=== PATIENT | female | born 1960 | race Caucasian/White ===

== ENCOUNTER → 2020-11-25 | Outpatient (CLI) | payer MEDICARE | END | disposition home or self-care (01) | LOC: LABWHC1 07:50 | PROVIDERS: ATTEND Family Medicine | DX: Z20.822 Contact with and (suspected) exposure to COVID-19 (principal); R06.00 Dyspnea, unspecified | CPT/HCPCS: U0003; C9803; U0005 ==

== ENCOUNTER 2020-12-01 12:09 | Inpatient (IN) | payer MEDICARE ==
--- NOTE | 2020-12-01 12:58 | XR ---
EXAMINATION TYPE: XR chest 2V DATE OF EXAM: 12/01/2020 COMPARISON: None INDICATION: Cough, short of breath TECHNIQUE: Frontal and lateral views of the chest are obtained. FINDINGS: The heart size is normal. The pulmonary vasculature is normal. Small bilateral pleural effusions are present. Some minimal adjacent compressive atelectasis likely p resent. Due to left mastectomy. Multiple surgical clips are in the left axillary region. Osseous stru ctures as visualized appear normal.. IMPRESSION: 1. Small bilateral pleural effusions with adjacent atelectasis
[2020-12-01] MEDS ORDERED: SODIUM CHLORIDE 0.9% 1,000 ML IV STA (13:43)
[2020-12-01] MEDS ORDERED: methylPREDNISolone SOD SUCCI 125 MG/2 ML VIAL IV STA (13:43)
[2020-12-01] MEDS ORDERED: IPRATROPIUM-ALBUTEROL 3 ML NEB INHALATION STA (13:43)
--- NOTE | 2020-12-01 13:46 | ED ---
SOB HPI - General Chief Complaint: Shortness of Breath Stated Complaint: PIPER/Abd Pain Time Seen by Provider: 12/01/20 13:30 Source: patient, RN notes reviewed Mode of arrival: wheelchair Limitations: no limitations - History of Present Illness Initial Comments: This is a 60-year-old female with a history of lung cancer in the past with a history of asthma who is a 1 pack-a-day smoker who states she started developing some shortness of breath couple weeks ago and progressively worse now she has shortness of breath exertional dyspnea no palpitations she has a cough sometimes with yellow phlegm she denies any fevers chills or sweats. She denies any chest pain. She states her home medications are not working. Lung cancer was from 2003 MD Complaint: shortness of breath, cough - Related Data Home Medications Medication Instructions Recorded Confirmed Fluticasone Propionate [Flovent 2 puff INHALATION RT-BID 12/01/20 12/01/20 Diskus] Allergies Allergy/AdvReac Type Severity Reaction Status Date / Time morphine Allergy Rash/Hives Verified 12/01/20 13:44 Review of Systems ROS Statement: Those systems with pertinent positive or pertinent negative responses have been documented in the HPI. ROS Other: All systems not noted in ROS Statement are negative. Past Medical History Past Medical History: Cancer Additional Past Medical History / Comment(s): Breast CA 2003 History of Any Multi-Drug Resistant Organisms: None Reported Past Surgical History: No Surgical Hx Reported Smoking Status: Never smoker Past Alcohol Use History: None Reported Past Drug Use History: Marijuana General Exam - General Exam Comments Initial Comments: Pezzer well-developed asthenic appearing female who is awake alert oriented 3 Limitations: no limitations General appearance: alert, anxious, in distress Head exam: Present: atraumatic, normocephalic, normal inspection Eye exam: Present: normal appearance, PERRL, EOMI. Absent: scleral icterus, conjunctival injection, periorbital swelling ENT exam: Present: mucous membranes dry Neck exam: Present: normal inspection. Absent: tenderness, meningismus, lymphadenopathy Respiratory exam: Present: decreased breath sounds. Absent: respiratory distress, wheezes, rales, rhonchi, stridor Cardiovascular Exam: Present: regular rate, normal rhythm, normal heart sounds. Absent: systolic murmur, diastolic murmur, rubs, gallop, clicks GI/Abdominal exam: Present: soft, normal bowel sounds. Absent: distended, tenderness, guarding, rebound, rigid Extremities exam: Present: normal inspection, full ROM, normal capillary refill. Absent: tenderness, pedal edema, joint swelling, calf tenderness Back exam: Present: normal inspection Neurological exam: Present: alert, oriented X3, CN II-XII intact Psychiatric exam: Present: normal affect, normal mood Skin exam: Present: warm, dry, intact, normal color. Absent: rash Course Vital Signs 12/01/20 12/01/20 12/01/20 12:19 13:24 15:00 Pulse Rate 101 H 96 Respiratory 20 22 20 Rate Blood Pressure 105/75 110/78 O2 Sat by Pulse 100 99 Oximetry - Reevaluation(s) Reevaluation #1: 12/01/20 17:07 Initial reevaluation patient reveals she felt somewhat improved at the breathing treatment was so short of breath Medical Decision Making - Medical Decision Making I did discuss the findings with the patient and with Dr. sims patient has bilateral pleural effusions evidence of asthma exacerbation patient will be admitted for inpatient evaluation and treatment she was offered a nicotine patch as she smokes one pack cigarettes per day she does not want a patch at this time. - Lab Data Result diagrams: 12/01/20 14:09 12/01/20 14:09 Lab Results 12/01/20 12/01/20 12/01/20 Range/Units 14:09 14:09 14:09 WBC 11.7 H (3.8-10.6) k/uL RBC 4.50 (3.80-5.40) m/uL Hgb 12.8 (11.4-16.0) gm/dL Hct 41.0 (34.0-46.0) % MCV 91.1 (80.0-100.0) fL MCH 28.4 (25.0-35.0) pg MCHC 31.1 (31.0-37.0) g/dL RDW 16.2 H (11.5-15.5) % Plt Count 280 (150-450) k/uL MPV 9.7 Neutrophils % 68 % Lymphocytes % 25 % Monocytes % 5 % Eosinophils % 1 % Basophils % 0 % Neutrophils # 8.0 H (1.3-7.7) k/uL Lymphocytes # 2.9 (1.0-4.8) k/uL Monocytes # 0.6 (0-1.0) k/uL Eosinophils # 0.1 (0-0.7) k/uL Basophils # 0.0 (0-0.2) k/uL Hypochromasia Slight Anisocytosis Slight PT 10.5 (9.0-12.0) sec INR 1.0 (<1.2) APTT 21.9 L (22.0-30.0) sec Sodium 140 (137-145) mmol/L Potassium 3.7 (3.5-5.1) mmol/L Chloride 104 (98-107) mmol/L Carbon Dioxide 27 (22-30) mmol/L Anion Gap 9 mmol/L BUN 13 (7-17) mg/dL Creatinine 0.61 (0.52-1.04) mg/dL Est GFR (CKD-EPI)AfAm >90 (>60 ml/min/1.73 sqM) Est GFR (CKD-EPI)NonAf >90 (>60 ml/min/1.73 sqM) Glucose 89 (74-99) mg/dL Plasma Lactic Acid Pascual (0.7-2.0) mmol/L Calcium 9.2 (8.4-10.2) mg/dL Magnesium 2.0 (1.6-2.3) mg/dL Total Bilirubin 0.7 (0.2-1.3) mg/dL AST 50 H (14-36) U/L ALT 37 H (4-34) U/L Alkaline Phosphatase 135 H (38-126) U/L Creatine Kinase 84 (30-135) U/L Troponin I (0.000-0.034) ng/mL Total Protein 6.5 (6.3-8.2) g/dL Albumin 3.7 (3.5-5.0) g/dL 12/01/20 12/01/20 Range/Units 14:09 14:09 WBC (3.8-10.6) k/uL RBC (3.80-5.40) m/uL Hgb (11.4-16.0) gm/dL Hct (34.0-46.0) % MCV (80.0-100.0) fL MCH (25.0-35.0) pg MCHC (31.0-37.0) g/dL RDW (11.5-15.5) % Plt Count (150-450) k/uL MPV Neutrophils % % Lymphocytes % % Monocytes % % Eosinophils % % Basophils % % Neutrophils # (1.3-7.7) k/uL Lymphocytes # (1.0-4.8) k/uL Monocytes # (0-1.0) k/uL Eosinophils # (0-0.7) k/uL Basophils # (0-0.2) k/uL Hypochromasia Anisocytosis PT (9.0-12.0) sec INR (<1.2) APTT (22.0-30.0) sec Sodium (137-145) mmol/L Potassium (3.5-5.1) mmol/L Chloride (98-107) mmol/L Carbon Dioxide (22-30) mmol/L Anion Gap mmol/L BUN (7-17) mg/dL Creatinine (0.52-1.04) mg/dL Est GFR (CKD-EPI)AfAm (>60 ml/min/1.73 sqM) Est GFR (CKD-EPI)NonAf (>60 ml/min/1.73 sqM) Glucose (74-99) mg/dL Plasma Lactic Acid Pascual 1.6 (0.7-2.0) mmol/L Calcium (8.4-10.2) mg/dL Magnesium (1.6-2.3) mg/dL Total Bilirubin (0.2-1.3) mg/dL AST (14-36) U/L ALT (4-34) U/L Alkaline Phosphatase (38-126) U/L Creatine Kinase (30-135) U/L Troponin I 0.040 H* (0.000-0.034) ng/mL Total Protein (6.3-8.2) g/dL Albumin (3.5-5.0) g/dL - EKG Data -: EKG Interpreted by Me EKG Comments: Sinus tachycardia rate 105. Interval 160 QRS 88 QT since QTC 372/491 low- voltage QRS or R-wave progression - Radiology Data Radiology results: report reviewed (Reviewed evidence of bilateral pleural effusions), image reviewed Disposition Clinical Impression: Asthma exacerbation, Bilateral pleural effusion Disposition: ADMITTED IP TO THIS [facility] Condition: Fair Referrals: Cornell Alexander DO [Primary Care Provider] - 1-2 days
[2020-12-01] MEDS ORDERED: ALBUTEROL HFA INHALER INHALATION STA (14:09)
[2020-12-01 14:32] LABS: Anisocytosis Slight; Basophils % (A) 0 %; Eosinophils # (A) 0.1 k/uL (0-0.7); Eosinophils % (A) 1 %; HGB 12.8 gm/dL (11.4-16.0); Hypochromasia Slight; Lymphocytes # (A) 2.9 k/uL (1.0-4.8); Lymphocytes % (A) 25 %; MCH 28.4 pg (25.0-35.0); MCHC 31.1 g/dL (31.0-37.0); MCV 91.1 fL (80.0-100.0); Mean Platelet Volume 9.7; Monocytes # (A) 0.6 k/uL (0-1.0); Monocytes % (A) 5 %; Neutrophils % (A) 68 %; Platelet Count 280 k/uL (150-450); RDW 16.2 % (11.5-15.5); WBC 11.7 k/uL (3.8-10.6)
[2020-12-01 14:40] LABS: Prothrombin Time 10.5 sec (9.0-12.0)
[2020-12-01 14:47] LABS: ALT 37 U/L (4-34); AST 50 U/L (14-36); African American GFR (CKD) >90 (>60 ml/min/1.73 sqM); Albumin 3.7 g/dL (3.5-5.0); Alkaline Phosphatase 135 U/L (38-126); Anion Gap 9 mmol/L; Blood Urea Nitrogen 13 mg/dL (7-17); Calcium 9.2 mg/dL (8.4-10.2); Carbon Dioxide 27 mmol/L (22-30); Chloride 104 mmol/L (98-107); Creatine Kinase 84 U/L (30-135); Glucose 89 mg/dL (74-99); Non-African American GFR(CKD) >90 (>60 ml/min/1.73 sqM); Potassium 3.7 mmol/L (3.5-5.1); Sodium 140 mmol/L (137-145); Total Bilirubin 0.7 mg/dL (0.2-1.3); Total Protein 6.5 g/dL (6.3-8.2)
[2020-12-01 14:59] LABS: Partial Thromboplastin Time 21.9 sec (22.0-30.0)
[2020-12-01] MEDS ORDERED: ASPIRIN 81 MG PO STA (17:09)
[2020-12-01] MEDS ORDERED: FUROSEMIDE 10 MG/ML 4 ML VIAL IV STA (17:09)
[2020-12-01] MEDS ORDERED: HEPARIN SODIUM 1,000 UN/ML (10ML VL) IV PRN (17:12)
[2020-12-01] MEDS ORDERED: HEPARIN SODIUM 1,000 UN/ML (10ML VL) IV ONE (17:12)
[2020-12-01] MEDS: SODIUM CHLORIDE 0.9% 1,000 ML IV SCH (17:44)
[2020-12-01] MEDS: HEPARIN SOD,PORK IN 0.45% NACL 25,000 UNIT in 0.45% NACL 1 250ML.BAG IV SCH (17:47)
[2020-12-01] MEDS ORDERED: IPRATROPIUM-ALBUTEROL 3 ML NEB INHALATION PRN (19:01)
[2020-12-01] MEDS: IPRATROPIUM-ALBUTEROL 3 ML NEB INHALATION SCH (19:17)
[2020-12-01] MEDS ORDERED: IPRATROPIUM-ALBUTEROL 3 ML NEB INHALATION SCH (20:00)
[2020-12-01] MEDS: FUROSEMIDE 10 MG/ML 2 ML VIAL IV SCH (21:29)
--- NOTE | 2020-12-01 23:06 | P.HPIM ---
History of Present Illness This is a pleasant 60 years old female with no significant past medical history. She follows up with Dr. Alexander recently. She recently moved from [place] to [place]. Patient is heavy smoker smokes about 1 pack per day but no alcohol. She uses pot at times. Presents because of dyspnea over the last 3 weeks, her dyspnea got worse over the last couple days and she decided to come to emergency room. Her dyspnea is not associated with any chest pain or cough or phlegm. However she complains from epigastric pain for the last 2 weeks but mild about 1/10 , feels like tightness No nausea vomiting or diarrhea. No dysuria or change in urinary habits or frequency. He denies headache, weakness or numbness or blurred vision or slurred speech. However her chest pain is associated with numbness in her left upper extremity and fingers for the last 3 weeks. She is a slightly tachycardic and tender to 2, blood pressure is low normal with systolic BP above 100. Labs reviewed: CBC showed mild leukocytosis with 11.7 K, mild increased LFTs. Troponin is high at 0.04. Line chest x-ray showing bilateral pleural effusion with atelectasis. In the emergency room patient was started on heparin drip and aspirin. Review of Systems Review of systems CONSTITUTIONAL: No fever, no malaise, no fatigue. HEENT: No recent visual problems or hearing problems. Denied any sore throat. CARDIOVASCULAR: No orthopnea, PND, no palpitations, no syncope. PULMONARY: No chest wall tenderness, no cough, no hemoptysis. GASTROINTESTINAL: No diarrhea, no nausea, no vomiting, no abdominal pain. Normoactive bowel sounds. NEUROLOGICAL: No headaches, no weakness, no numbness. HEMATOLOGICAL: Denies any bleeding or petechiae. GENITOURINARY: Denies any burning micturition, frequency, or urgency. MUSCULOSKELETAL/RHEUMATOLOGICAL: Denies any joint pain, swelling, or any muscle pain. ENDOCRINE: Denies any polyuria or polydipsia. Past Medical History Past Medical History: Cancer Additional Past Medical History / Comment(s): Breast CA 2004 History of Any Multi-Drug Resistant Organisms: None Reported Past Surgical History: No Surgical Hx Reported Smoking Status: Never smoker Past Alcohol Use History: None Reported Past Drug Use History: Marijuana Medications and Allergies Home Medications Medication Instructions Recorded Confirmed Type Fluticasone Propionate [Flovent 2 puff INHALATION RT-BID 12/01/20 12/01/20 History Diskus] Allergies Allergy/AdvReac Type Severity Reaction Status Date / Time morphine Allergy Rash/Hives Verified 12/01/20 13:44 Physical Exam Vitals: Vital Signs Temp Pulse Resp BP Pulse Ox 12/01/20 20:01 98.0 F 102 H 20 113/75 99 12/01/20 19:30 102 H 12/01/20 19:18 102 H 12/01/20 17:00 89 20 114/68 99 12/01/20 15:00 96 20 110/78 99 12/01/20 13:24 22 12/01/20 12:19 101 H 20 105/75 100 Intake and Output 12/01/20 12/01/20 12/01/20 06:59 14:59 22:59 Other: Weight 56.699 kg GENERAL: The patient is alert and oriented x3, not in any acute distress. Well developed, well nourished. HEENT: Pupils are round and equally reacting to light. EOMI. No scleral icterus. No conjunctival pallor. Normocephalic, atraumatic. No pharyngeal erythema. No thyromegaly. CARDIOVASCULAR: S1 and S2 present. No murmurs, rubs, or gallops. -PULMONARY: Chest is clear to auscultation, no wheezing or crackles. Bilateral basal crepitation ABDOMEN: Soft, nontender, nondistended, normoactive bowel sounds. No palpable organomegaly. MUSCULOSKELETAL: No joint swelling or deformity. EXTREMITIES: No cyanosis, clubbing, or pedal edema. NEUROLOGICAL: Gross neurological examination did not reveal any focal deficits. SKIN: No rashes. no petechiae. Results CBC & Chem 7: 12/01/20 14:09 12/01/20 14:09 Labs: Abnormal Lab Results - Last 24 Hours (Table) 12/01/20 12/01/20 12/01/20 Range/Units 14:09 14:09 14:09 WBC 11.7 H (3.8-10.6) k/uL RDW 16.2 H (11.5-15.5) % Neutrophils # 8.0 H (1.3-7.7) k/uL APTT 21.9 L (22.0-30.0) sec AST 50 H (14-36) U/L ALT 37 H (4-34) U/L Alkaline Phosphatase 135 H (38-126) U/L Troponin I (0.000-0.034) ng/mL 12/01/20 Range/Units 14:09 WBC (3.8-10.6) k/uL RDW (11.5-15.5) % Neutrophils # (1.3-7.7) k/uL APTT (22.0-30.0) sec AST (14-36) U/L ALT (4-34) U/L Alkaline Phosphatase (38-126) U/L Troponin I 0.040 H* (0.000-0.034) ng/mL Assessment and Plan Assessment: Acute coronary artery syndrome, possible non-STEMI Bilateral pleural effusion, rule out CHF Nicotine dependence Plan: This is a pleasant 60 years old female who presents with non-STEMI. Patient to continue with heparin drip, aspirin 81 mg. Continue with Lasix 20 mg twice daily. Cardiology been consulted and contacted. Check echocardiogram Labs and medication were reviewed.. Continue same treatment. Continue with symptomatic treatment. Resume home medication. Monitor lytes and vitals. DVT and GI prophylaxis. Further recommendationsas per clinical course of the patient DVT prophylaxis: heparin GI Prophylaxis: Pepcid PT/OT: Pending Prognosis is guarded
[2020-12-02 08:07] LABS: Anisocytosis Slight; Basophils % (A) 0 %; Eosinophils # (A) 0.1 k/uL (0-0.7); Eosinophils % (A) 1 %; HCT 38.6 % (34.0-46.0); HGB 12.4 gm/dL (11.4-16.0); Hypochromasia Slight; Lymphocytes # (A) 1.5 k/uL (1.0-4.8); Lymphocytes % (A) 15 %; MCH 28.9 pg (25.0-35.0); MCHC 32.1 g/dL (31.0-37.0); MCV 90.1 fL (80.0-100.0); Mean Platelet Volume 9.7; Monocytes # (A) 0.6 k/uL (0-1.0); Monocytes % (A) 6 %; Neutrophils # (A) 7.5 k/uL (1.3-7.7); Neutrophils % (A) 78 %; Platelet Count 259 k/uL (150-450); RBC 4.29 m/uL (3.80-5.40); WBC 9.6 k/uL (3.8-10.6)
[2020-12-02 08:15] LABS: INR 1.1 (<1.2); Partial Thromboplastin Time 51.7 sec (22.0-30.0); Prothrombin Time 11.3 sec (9.0-12.0)
[2020-12-02] MEDS: IPRATROPIUM-ALBUTEROL 3 ML NEB INHALATION SCH ×4 (08:20→21:56)
[2020-12-02 08:29] LABS: ALT 40 U/L (4-34); AST 53 U/L (14-36); African American GFR (CKD) >90 (>60 ml/min/1.73 sqM); Albumin 3.6 g/dL (3.5-5.0); Alkaline Phosphatase 123 U/L (38-126); Anion Gap 9 mmol/L; Blood Urea Nitrogen 17 mg/dL (7-17); Carbon Dioxide 27 mmol/L (22-30); Chloride 103 mmol/L (98-107); Glucose 136 mg/dL (74-99); Magnesium 1.7 mg/dL (1.6-2.3); Non-African American GFR(CKD) >90 (>60 ml/min/1.73 sqM); Potassium 3.9 mmol/L (3.5-5.1); Sodium 139 mmol/L (137-145); Total Bilirubin 0.7 mg/dL (0.2-1.3); Total Protein 6.2 g/dL (6.3-8.2)
[2020-12-02] MEDS: ASPIRIN 81 MG PO SCH (08:29)
[2020-12-02] MEDS: FUROSEMIDE 10 MG/ML 2 ML VIAL IV SCH (08:29)
[2020-12-02] MEDS: METOPROLOL TARTRATE 25 MG TAB PO SCH ×2 (10:29→20:53)
--- NOTE | 2020-12-02 11:07 | ECHOF ---
Referral Reason:Rule out heart disease MEASUREMENTS -------- HEIGHT: 157.5 cm WEIGHT: 56.7 kg BP: 110/60 RVIDd: 2.3 cm (< 3.3) IVSd: 0.8 cm (0.6 - 1.1) LVIDd: 6.3 cm (3.9 - 5.3) LVPWd: 0.8 cm (0.6 - 1.1) IVSs: 0.9 cm LVIDs: 5.8 cm LVPWs: 1.0 cm LAESV Index (A-L): 33.36 ml/m Ao Diam: 3.4 cm (2.0 - 3.7) AV Cusp: 1.8 cm (1.5 - 2.6) LA Diam: 3.8 cm (2.7 - 3.8) MV EXCURSION: 14.230 mm (> 18.000) MV EF SLOPE: 99 mm/s (70 - 150) EPSS: 2.6 cm MV E Kyle: 1.09 m/s MV DecT: 200 ms MV A Kyle: 0.23 m/s MV E/A Ratio: 4.79 AR PHT: 623 ms RAP: 20.00 mmHg RVSP: 56.05 mmHg FINDINGS -------- This was a technically good study. The left ventricle is severely dilated. Left ventricular wall thickness is normal. There is sever e global hypokinesis of LV . Overall left ventricular systolic function is severely impaired with, an EF < 20%. Increased LAP Grade 3 Diastolic Dysfunction. The right ventricle is normal in size. LA is midly dilated 29-33ml/m2. The right atrial size is normal. Interatrial and interventricular septum intact. Aortic valve is trileaflet and is mildly thickened. Trace amount of aortic regurgitation. The mitral valve is normal. The mitral valve leaflets are mildly thickened. Severe mitral regurgi tation is present. The tricuspid valve appears structurally normal. Moderate tricuspid regurgitation present. There is moderate pulmonary hypertension. The right ventricular systolic pressure, as measured by Doppler , is 56.05mmHg. Trace/mild (physiologic) pulmonic regurgitation. The aortic root size is normal. The inferior vena cava is dilated with no significant inspiratory collapse which is consistent estima evita right atrial pressure of >20 mmHg. There is a trivial pericardial effusion present. Large Pleural Effusion. CONCLUSIONS -------- 1. The left ventricle is severely dilated. 2. Left ventricular wall thickness is normal. 3. There is severe global hypokinesis of LV . 4. Overall left ventricular systolic function is severely impaired with, an EF < 20%. 5. Increased LAP Grade 3 Diastolic Dysfunction. 6. LA is midly dilated 29-33ml/m2. 7. Aortic valve is trileaflet and is mildly thickened. 8. Trace amount of aortic regurgitation. 9. The mitral valve leaflets are mildly thickened. 10. Severe mitral regurgitation is present. 11. Moderate tricuspid regurgitation present. 12. There is moderate pulmonary hypertension. 13. The right ventricular systolic pressure, as measured by Doppler, is 56.05mmHg. 14. Trace/mild (physiologic) pulmonic regurgitation. 15. The inferior vena cava is dilated with no significant inspiratory collapse which is consistent es timated right atrial pressure of >20 mmHg. 16. There is a trivial pericardial effusion present. 17. Large Pleural Effusion. PULLEY MAN: Zeenat Rain RDCS
--- NOTE | 2020-12-02 11:09 | P.CRDCN ---
History of Present Illness Consult date: 12/02/20 History of present illness: HISTORY OF PRESENT ILLNESS: This is a 60-year-old female with a past medical history significant for breast cancer with chemotherapy and radiation in 2003, asthma, COPD, marijuana use, and nicotine dependence. Patient does not follow with a public defender and denies any previous cardiac history. We have been asked to see the patient in consultation for abnormal troponins. Patient examined at the bedside. Patient states she presented to the hospital secondary to shortness of breath. She states this has been ongoing for the past 3 weeks. She states it has gotten progressively worse to the point where she felt like she was gasping for air yesterday. She reports coughing which is chronic for her. She denies any chest pain or pressure. Patient denies any chest pain 3 weeks ago when her shortness of breath started. She denies any fever or chills. EKG reveals sinus mechanism with nonspecific ST-T wave changes Chest xray small bilateral pleural effusions with adjacent atelectasis Laboratory data: WBC 9.6. Hemoglobin 12.4. Platelet count 259. Sodium 139. Potassium 3.9. BUN 17. Creatinine 0.65. AST 53. ALT 40. Troponin 0.040. 0.033. 0.03. BNP 8800. Current home cardiac medications include none REVIEW OF SYSTEMS: At the time of my exam: CONSTITUTIONAL: Denies fever or chills. HEENT: Denies blurred vision, vision changes, or eye pain. Denies hemoptysis CARDIOVASCULAR: Denies chest pain. Denies orthopnea. Denies PND. Denies palpitations RESPIRATORY: Reports shortness of breath. GASTROINTESTINAL: Denies abdominal pain. Denies nausea or vomiting. HEMATOLOGIC: Denies bleeding disorders. GENITOURINARY: Denies any blood in urine. SKIN: Denies pruitis. Denies rash. PHYSICAL EXAM: VITAL SIGNS: Reviewed. GENERAL: Well-developed in no acute distress. HEENT: Head is normocephalic. Pupils are equal, round. Sclerae anicteric. Mucous membranes of the mouth are moist. Neck supple. No JVD or thyromegaly LUNGS: Respirations even and unlabored. Lungs with decreased air exchange and scattered expiratory wheezing. HEART: Regular rate and rhythm. S1 and S2 heard. ABDOMEN: Soft. Nondistended. Nontender. EXTREMITIES: Normal range of motion. No clubbing or cyanosis. Peripheral pulses intact. No lower extremity edema NEUROLOGIC: Awake and alert. Oriented x 3. ASSESSMENT: Shortness of breath 3 weeks Acute exacerbation of COPD Abnormal troponins, can not rule out underlying CAD Acute heart failure, type unknown, echo pending History of breast cancer with chemotherapy and radiation, 2003 Nicotine dependence Cannabis use Mildly elevated LFTs PLAN: Smoking cessation recommended Encouraged abstinence from marijuana Obtain 2-D echo to assess cardiac structure and function Continue aspirin 81 mg daily Begin metoprolol tartrate 25 mg twice a day Obtain lipid panel Continue IV heparin for today Possible outpatient stress test. If echo reveals abnormalities, may require inpatient cardiac cath when stable Further recommendations pending patient course Nurse practitioner note has been reviewed by physician. Signing provider agrees with the documented findings, assessment, and plan of care. Past Medical History Past Medical History: Cancer Additional Past Medical History / Comment(s): Breast CA 2003 History of Any Multi-Drug Resistant Organisms: None Reported Past Surgical History: No Surgical Hx Reported Smoking Status: Current every day smoker Past Alcohol Use History: None Reported Past Drug Use History: Marijuana - Past Family History Father Family Medical History: CVA/TIA, Hypertension, Myocardial Infarction ([place]) Mother Family Medical History: Cancer Medications and Allergies Home Medications Medication Instructions Recorded Confirmed Type Fluticasone Propionate [Flovent 2 puff INHALATION RT-BID 12/01/20 12/01/20 History Diskus] Allergies Allergy/AdvReac Type Severity Reaction Status Date / Time morphine Allergy Rash/Hives Verified 12/01/20 13:44 Physical Exam Vitals: Vital Signs Temp Pulse Pulse Resp BP BP Pulse Ox 12/02/20 08:00 97.6 F 102 H 18 104/66 98 12/02/20 02:50 97.7 F 97 19 110/60 97 12/01/20 23:20 97.5 F L 107 H 20 115/73 99 12/01/20 22:52 97.8 F 101 H 20 105/75 99 12/01/20 20:01 98.0 F 102 H 20 113/75 99 12/01/20 19:30 102 H 12/01/20 19:18 102 H 12/01/20 17:00 89 20 114/68 99 12/01/20 15:00 96 20 110/78 99 12/01/20 13:24 22 12/01/20 12:19 101 H 20 105/75 100 Intake and Output 12/01/20 12/02/20 12/02/20 22:59 06:59 14:59 Intake Total 49.896 Balance 49.896 Intake: Intake, IV Titration 49.896 Amount Heparin Sod,Pork in 0.45% 49.896 NaCl 25,000 unit In 0.45 % NaCl 1 250ml.bag @ 12 UNITS/KG/HR 6.804 mls/hr IV .Q24H [facility] Rx#: [id number] Other: Voiding Method Toilet Weight 56.699 kg Results 12/02/20 07:34 12/02/20 07:34 Cardiac Enzymes 12/01/20 12/01/20 12/01/20 Range/Units 14:09 14:09 22:45 AST 50 H (14-36) U/L Troponin I 0.040 H* 0.033 (0.000-0.034) ng/mL 12/02/20 12/02/20 Range/Units 07:34 07:34 AST 53 H (14-36) U/L Troponin I 0.038 H* (0.000-0.034) ng/mL Coagulation 12/01/20 12/01/20 12/02/20 Range/Units 14:09 22:45 00:19 PT 10.5 (9.0-12.0) sec APTT 21.9 L 37.7 H 30.6 H (22.0-30.0) sec 12/02/20 Range/Units 07:34 PT 11.3 (9.0-12.0) sec APTT 51.7 H (22.0-30.0) sec CBC 12/01/20 12/02/20 Range/Units 14:09 07:34 WBC 11.7 H 9.6 (3.8-10.6) k/uL RBC 4.50 4.29 (3.80-5.40) m/uL Hgb 12.8 12.4 (11.4-16.0) gm/dL Hct 41.0 38.6 (34.0-46.0) % Plt Count 280 259 (150-450) k/uL Comprehensive Metabolic Panel 12/01/20 12/02/20 Range/Units 14:09 07:34 Sodium 140 139 (137-145) mmol/L Potassium 3.7 3.9 (3.5-5.1) mmol/L Chloride 104 103 (98-107) mmol/L Carbon Dioxide 27 27 (22-30) mmol/L BUN 13 17 (7-17) mg/dL Creatinine 0.61 0.65 (0.52-1.04) mg/dL Glucose 89 136 H (74-99) mg/dL Calcium 9.2 9.0 (8.4-10.2) mg/dL AST 50 H 53 H (14-36) U/L ALT 37 H 40 H (4-34) U/L Alkaline Phosphatase 135 H 123 (38-126) U/L Total Protein 6.5 6.2 L (6.3-8.2) g/dL Albumin 3.7 3.6 (3.5-5.0) g/dL Current Medications Generic Name Dose Route Start Last Admin Trade Name Freq PRN Reason Stop Dose Admin Albuterol/Ipratropium 3 ml 12/01/20 20:00 12/02/20 08:20 Ipratropium-Albuterol 3 Ml Neb INHALATION Not Given RT-QID PITA Albuterol/Ipratropium 3 ml 12/01/20 19:01 Ipratropium-Albuterol 3 Ml Neb INHALATION RT-Q2H PRN Shortness Of Breath Or Wheezing Aspirin 81 mg 12/02/20 09:00 12/02/20 08:29 Aspirin 81 Mg PO 81 mg DAILY PITA Administration Furosemide 20 mg 12/01/20 21:00 12/02/20 08:29 Furosemide 10 Mg/Ml 2 Ml Vial IV 20 mg Q12HR PITA Administration Heparin Sodium (Porcine) 0 unit 12/01/20 17:12 12/02/20 01:07 Heparin Sodium 1,000 Un/Ml (10ml Vl) IV 1,100 unit PER PROTOCOL PRN Administration Low PTT Protocol Sodium Chloride 1,000 mls @ 20 mls/hr 12/01/20 17:15 12/01/20 17:44 Saline 0.9% IV 20 mls/hr .Q24H PITA Administration Heparin Sodium/Sodium Chloride 250 mls @ 6.804 mls/hr 12/01/20 17:15 12/02/20 01:07 25,000 unit/ Sodium Chloride IV 15 units/kg/hr .Q24H PITA 8.505 mls/hr Titration Protocol 12 UNITS/KG/HR Insulin Aspart 0 unit 12/02/20 12:30 Insulin Aspart (Novolog) 100 Unit/Ml Vial SQ ACHS [facility] Protocol Methylprednisolone Sodium Succinate 60 mg 12/02/20 12:00 Methylprednisolone Sod Succi 125 Mg/2 Ml Vial IV Q6HR [facility] Metoprolol Tartrate 25 mg 12/02/20 09:00 12/02/20 10:29 Metoprolol Tartrate 25 Mg Tab PO 25 mg BID [facility] Administration Intake and Output 12/01/20 12/02/20 12/02/20 22:59 06:59 14:59 Intake Total 49.896 Balance 49.896 Intake: Intake, IV Titration 49.896 Amount Heparin Sod,Pork in 0.45% 49.896 NaCl 25,000 unit In 0.45 % NaCl 1 250ml.bag @ 12 UNITS/KG/HR 6.804 mls/hr IV .Q24H [facility] Rx#: [id number] Other: Voiding Method Toilet Weight 56.699 kg 12/02/20 07:34 12/02/20 07:34
[2020-12-02] MEDS ORDERED: CALCIUM CARBONATE 500 MG CHEWABLE PO PRN (11:35)
[2020-12-02] MEDS ORDERED: FUROSEMIDE 10 MG/ML 2 ML VIAL IV ONE (11:43)
--- NOTE | 2020-12-02 11:48 | P.PN ---
Subjective This is a pleasant 60 years old female with no significant past medical history. She follows up with Dr. Alexander recently. She recently moved from [place] to [place]. Patient is heavy smoker smokes about 1 pack per day but no alcohol. She uses p ot at times. Presents because of dyspnea over the last 3 weeks, her dyspnea got worse over the last couple days and she decided to come to emergency room. Her dyspnea is not associated with any chest pain or cough or phlegm. However she complains from epigastric pain for the last 2 weeks but mild about 1/10 , feels like tightness No nausea vomiting or diarrhea. No dysuria or change in urinary habits or frequency. He denies headache, weakness or numbness or blurred vision or slurred speech. However her chest pain is associated with numbness in her left upper extremity and fingers for the last 3 weeks. She is a slightly tachycardic and tender to 2, blood pressure is low normal with systolic BP above 100. Labs reviewed: CBC showed mild leukocytosis with 11.7 K, mild increased LFTs. Troponin is high at 0.04. Line chest x-ray showing bilateral pleural effusion with atelectasis. In the emergency room patient was started on heparin drip and aspirin. 12/02/2020 Patient is dyspneic today however her breathing still cannot past. she is on 2 L oxygen via nasal cannula and saturating 98% . CBC and BMP are unremarkable and creatinine normal. She still has decreased air entering on both sides of the lung. Her troponin were elevated again slightly today to 0.038. ProBNP is elevated 8800. Echocardiogram today showing ejection fraction less than 20% with wall hypokinesia, also severe MR, moderate TR and moderate pulmonary hypertension. Large pleural effusion. Continue with heparin drip, increase Lasix to 40 mg twice daily. Start Solu-Medro. Pulmonary consult in view large pleural effusion we will order ultrasound of the chest. Start Protonix 40 mg twice daily. Review of systems CONSTITUTIONAL: No fever, no malaise, no fatigue. HEENT: No recent visual problems or hearing problems. Denied any sore throat. CARDIOVASCULAR: No orthopnea, PND, no palpitations, no syncope. PULMONARY: No chest wall tenderness, no cough, no hemoptysis. GASTROINTESTINAL: No diarrhea, no nausea, no vomiting, no abdominal pain. Normoactive bowel sounds. NEUROLOGICAL: No headaches, no weakness, no numbness. Active Medications Generic Name Dose Route Start Last Admin Trade Name Freq PRN Reason Stop Dose Admin Albuterol/Ipratropium 3 ml 12/01/20 20:00 12/02/20 11:18 Ipratropium-Albuterol 3 Ml Neb INHALATION 3 ml RT-QID PITA Administration Albuterol/Ipratropium 3 ml 12/01/20 19:01 Ipratropium-Albuterol 3 Ml Neb INHALATION RT-Q2H PRN Shortness Of Breath Or Wheezing Aspirin 81 mg 12/02/20 09:00 12/02/20 08:29 Aspirin 81 Mg PO 81 mg DAILY PITA Administration Calcium Carbonate/Glycine 500 mg 12/02/20 11:35 Calcium Carbonate 500 Mg Chewable PO TID PRN Heartburn Furosemide 20 mg 12/01/20 21:00 12/02/20 08:29 Furosemide 10 Mg/Ml 2 Ml Vial IV 20 mg Q12HR PITA Administration Heparin Sodium (Porcine) 0 unit 12/01/20 17:12 12/02/20 01:07 Heparin Sodium 1,000 Un/Ml (10ml Vl) IV 1,100 unit PER PROTOCOL PRN Administration Low PTT Protocol Sodium Chloride 1,000 mls @ 20 mls/hr 12/01/20 17:15 12/01/20 17:44 Saline 0.9% IV 20 mls/hr .Q24H PITA Administration Heparin Sodium/Sodium Chloride 250 mls @ 6.804 mls/hr 12/01/20 17:15 12/02/20 01:07 25,000 unit/ Sodium Chloride IV 15 units/kg/hr .Q24H PITA 8.505 mls/hr Titration Protocol 12 UNITS/KG/HR Insulin Aspart 0 unit 12/02/20 12:30 Insulin Aspart (Novolog) 100 Unit/Ml Vial SQ ACHS PIAT Protocol Methylprednisolone Sodium Succinate 40 mg 12/02/20 16:00 Methylprednisolone Sod Succi 40 Mg/Ml 1 Ml Vial IV Q8HR [facility] Metoprolol Tartrate 25 mg 12/02/20 09:00 12/02/20 10:29 Metoprolol Tartrate 25 Mg Tab PO 25 mg BID PITA Administration Pantoprazole Sodium 40 mg 12/02/20 11:45 Pantoprazole 40 Mg/10 Ml Vial IVP BID [facility] Objective - Vital Signs Vital signs: Vital Signs Temp 97.6 F 12/02/20 08:00 Pulse 90 12/02/20 11:29 Resp 18 12/02/20 08:00 BP 104/66 12/02/20 08:00 Pulse Ox 98 12/02/20 08:00 Intake & Output 12/01/20 12/02/20 12/02/20 18:59 06:59 18:59 Intake Total 49.896 Balance 49.896 Weight 56.699 kg 56.699 kg Intake: Intake, IV Titration 49.896 Amount Heparin Sod,Pork in 0.45% 49.896 NaCl 25,000 unit In 0.45 % NaCl 1 250ml.bag @ 12 UNITS/KG/HR 6.804 mls/hr IV .Q24H [facility] Rx#: [id number] Other: Voiding Method Toilet - Exam GENERAL: The patient is alert and oriented x3, not in any acute distress. Well developed, well nourished. HEENT: Pupils are round and equally reacting to light. EOMI. No scleral icterus. No conjunctival pallor. Normocephalic, atraumatic. No pharyngeal erythema. No thyromegaly. CARDIOVASCULAR: S1 and S2 present. No murmurs, rubs, or gallops. -PULMONARY: Chest is clear to auscultation, Decreased breath sounds on the basis. Expiratory wheezing ABDOMEN: Soft, nontender, nondistended, normoactive bowel sounds. No palpable organomegaly. MUSCULOSKELETAL: No joint swelling or deformity. EXTREMITIES: No cyanosis, clubbing, or pedal edema. NEUROLOGICAL: Gross neurological examination did not reveal any focal deficits. SKIN: No rashes. no petechiae. - Labs CBC & Chem 7: 12/02/20 07:34 12/02/20 07:34 Labs: Abnormal Lab Results - Last 24 Hours (Table) 12/01/20 12/01/20 12/01/20 Range/Units 14:09 14:09 14:09 WBC 11.7 H (3.8-10.6) k/uL RDW 16.2 H (11.5-15.5) % Neutrophils # 8.0 H (1.3-7.7) k/uL APTT 21.9 L (22.0-30.0) sec Glucose (74-99) mg/dL AST 50 H (14-36) U/L ALT 37 H (4-34) U/L Alkaline Phosphatase 135 H (38-126) U/L Troponin I (0.000-0.034) ng/mL Total Protein (6.3-8.2) g/dL 12/01/20 12/01/20 12/02/20 Range/Units 14:09 22:45 00:19 WBC (3.8-10.6) k/uL RDW (11.5-15.5) % Neutrophils # (1.3-7.7) k/uL APTT 37.7 H 30.6 H (22.0-30.0) sec Glucose (74-99) mg/dL AST (14-36) U/L ALT (4-34) U/L Alkaline Phosphatase (38-126) U/L Troponin I 0.040 H* (0.000-0.034) ng/mL Total Protein (6.3-8.2) g/dL 12/02/20 12/02/20 12/02/20 Range/Units 07:34 07:34 07:34 WBC (3.8-10.6) k/uL RDW 16.0 H (11.5-15.5) % Neutrophils # (1.3-7.7) k/uL APTT 51.7 H (22.0-30.0) sec Glucose 136 H (74-99) mg/dL AST 53 H (14-36) U/L ALT 40 H (4-34) U/L Alkaline Phosphatase (38-126) U/L Troponin I (0.000-0.034) ng/mL Total Protein 6.2 L (6.3-8.2) g/dL 12/02/20 Range/Units 07:34 WBC (3.8-10.6) k/uL RDW (11.5-15.5) % Neutrophils # (1.3-7.7) k/uL APTT (22.0-30.0) sec Glucose (74-99) mg/dL AST (14-36) U/L ALT (4-34) U/L Alkaline Phosphatase (38-126) U/L Troponin I 0.038 H* (0.000-0.034) ng/mL Total Protein (6.3-8.2) g/dL Assessment and Plan Assessment: Acute coronary artery syndrome, possible non-STEMI Ischemic cardiomyopathy with ejection fraction less than 20% Severe MR, moderate TR, moderate pulmonary hypertension Bilateral pleural effusion, rule out CHF Acute COPD exacerbation Nicotine dependence Plan: This is a pleasant 60 years old female who presents with non-STEMI. Patient to continue with heparin drip, aspirin 81 mg. Continue with Lasix 40 mg twice daily. Cardiology and pulmonary consult. Continue with heparin drip, continue with aspirin Solu-Medrol Labs and medication were reviewed.. Continue same treatment. Continue with symptomatic treatment. Resume home medication. Monitor lytes and vitals. DVT and GI prophylaxis. Further recommendationsas per clinical course of the patient DVT prophylaxis: heparin GI Prophylaxis: Ppi PT/OT: Pending Prognosis is guarded
[2020-12-02] MEDS ORDERED: methylPREDNISolone SOD SUCCI 125 MG/2 ML VIAL IV SCH (12:00)
[2020-12-02 12:14] LABS: Glucose,Whole Blood 145 mg/dL (75-99)
[2020-12-02] MEDS: PANTOPRAZOLE 40 MG/10 ML VIAL IVP SCH ×2 (12:27→20:53)
[2020-12-02] MEDS: INSULIN ASPART (NovoLOG) 100 UNIT/ML VIAL SQ SCH ×2 (12:29→17:22)
--- NOTE | 2020-12-02 12:49 | US ---
EXAMINATION TYPE: US chest DATE OF EXAM: 12/02/2020 COMPARISON: NONE CLINICAL HISTORY: Pleural effusion. TECHNIQUE: Targeted ultrasound of the posterior lower bilateral hemithoraces EXAM MEASUREMENTS: Right Pleural Effusion pocket size: 10.1 cm Right skin surface to fluid distance: 1.6 cm Left Pleural Effusion pocket size: 8.0 cm Left skin surface to fluid distance: 1.8 cm Right side marked for possible thoracentesis outside the dept. Left side marked for possible thoracentesis outside the dept. Pulmonologists are able to review the images in the patient?s EMR. IMPRESSIONS: 1. Bilateral pleural effusions are seen, as described above.
--- NOTE | 2020-12-02 13:42 | P.CNPUL ---
History of Present Illness Consult date: 12/02/20 Reason for consult: dyspnea, pleural effusion Chief complaint: Shortness of breath History of present illness: This is a 60-year-old female history of breast cancer back in 2003, COPD, not O2 dependent, however the patient is known to have tobacco dependence syndrome, she is at least a [id number] smoker. Patient is primarily a patient of Dr. Pulido, she was admitted to the hospital yesterday with 3 days history of increased shortness of breath. Patient describes cough, cough is productive with clear phlegm, no fever, no chills, no hemoptysis, no chest pain. Chest x- ray on admission showed bilateral pleural effusions. And it also showed some bibasilar atelectasis. Echocardiogram showed severe LV dysfunction with ejection fraction of less than 20%. EKG showed nonspecific ST and T wave changes. Labs were basically unremarkable except for elevated troponin, negative PCR for COVID-19 infection, elevated BNP of 8800. Considering the patient has bilateral pleural effusions I was asked to see the patient on consultation. However based on the clinical history and based on the abnormal echocardiogram, the pleural effusions are clearly cardiac related, and no need for thoracentesis at this point, would only recommend aggressive medical therapy/diuretics. In the meantime the patient is being followed by cardiology for further evaluation of her cardiomyopathy and LV dysfunction. Patient is now on heparin, mostly for abnormal troponin and PTT is therapeutic. Review of Systems CONSTITUTIONAL: Denies weight loss, denies fever and chills. HEENT: Negative. CARDIOVASCULAR: Shortness of breath, no orthopnea, no PND, no chest pain. RESPIRATORY: As noted in HPI, mostly shortness of breath and GASTROINTESTINAL: No nausea no vomiting no abdominal pain no melena no hematemesis. HEMATOLOGIC: no Clotting no bleeding no bruising. GENITOURINARY: No dysuria frequency urgency or hematuria. SKIN: Denies pruitis. Denies rashes Psychiatric: Denies any symptoms of depression. Neurologic: Negative. Past Medical History Past Medical History: Cancer Additional Past Medical History / Comment(s): Breast CA 2003 History of Any Multi-Drug Resistant Organisms: None Reported Past Surgical History: No Surgical Hx Reported Smoking Status: Current every day smoker Past Alcohol Use History: None Reported Past Drug Use History: Marijuana - Past Family History Father Family Medical History: CVA/TIA, Hypertension, Myocardial Infarction ([place]) Mother Family Medical History: Cancer Medications and Allergies Home Medications Medication Instructions Recorded Confirmed Type Fluticasone Propionate [Flovent 2 puff INHALATION RT-BID 12/01/20 12/01/20 History Diskus] Allergies Allergy/AdvReac Type Severity Reaction Status Date / Time morphine Allergy Rash/Hives Verified 12/01/20 13:44 Physical Exam Vitals: Vital Signs Temp Pulse Pulse Resp BP BP Pulse Ox 12/02/20 12:00 89 98/49 93 L 12/02/20 11:29 90 12/02/20 11:19 88 12/02/20 08:00 97.6 F 102 H 18 104/66 98 12/02/20 02:50 97.7 F 97 19 110/60 97 12/01/20 23:20 97.5 F L 107 H 20 115/73 99 12/01/20 22:52 97.8 F 101 H 20 105/75 99 12/01/20 20:01 98.0 F 102 H 20 113/75 99 12/01/20 19:30 102 H 12/01/20 19:18 102 H 12/01/20 17:00 89 20 114/68 99 12/01/20 15:00 96 20 110/78 99 Intake and Output 12/01/20 12/02/20 12/02/20 22:59 06:59 14:59 Intake Total 49.896 Balance 49.896 Intake: Intake, IV Titration 49.896 Amount Heparin Sod,Pork in 0.45% 49.896 NaCl 25,000 unit In 0.45 % NaCl 1 250ml.bag @ 12 UNITS/KG/HR 6.804 mls/hr IV .Q24H [facility] Rx#: [id number] Other: Voiding Method Toilet Weight 56.699 kg Physical Exam: Revealed 60-year-old female in mild distress. Patient is on 2 L nasal cannula, and her O2 saturation is 93% HEENT:[Neck is supple.] [No neck masses.] [No thyromegaly.] Positive JVD. Chest: [Symmetrical chest expansion, diminished breath sounds at the bases with dullness. No rhonchi no wheezes. Scars of bilateral mastectomies noted. Cardiac Exam: Normal S1 and S2, 2/6 systolic murmur thought the precordium. Abdomen: [Soft, nontender, no megaly, no rebound, no guarding, normal bowel sounds.] Extremities: [No clubbing, trace of bipedal edema, no cyanosis.] Good pulses bilaterally. Neurological Exam: [No focal neurologic deficit.] Alert and oriented 3. Psychiatric: Anxious mood, blunt affect, normal mental status examination. Patient tries to avoid visual contact. Skin: Surgical scar is noted in the chest from previous bilateral mastectomies. Musculoskeletal: No deformities and no limitation in range of motion. Results - Laboratory Findings CBC and BMP: 12/02/20 07:34 12/02/20 07:34 PT/INR, D-dimer PT 11.3 sec (9.0-12.0) 12/02/20 07:34 INR 1.1 (<1.2) 12/02/20 07:34 Abnormal lab findings: Abnormal Labs 12/01/20 12/01/20 12/01/20 14:09 14:09 14:09 WBC 11.7 H RDW 16.2 H Neutrophils # 8.0 H APTT 21.9 L Glucose POC Glucose (mg/dL) AST 50 H ALT 37 H Alkaline Phosphatase 135 H Troponin I Total Protein 12/01/20 12/01/20 12/02/20 14:09 22:45 00:19 WBC RDW Neutrophils # APTT 37.7 H 30.6 H Glucose POC Glucose (mg/dL) AST ALT Alkaline Phosphatase Troponin I 0.040 H* Total Protein 12/02/20 12/02/20 12/02/20 07:34 07:34 07:34 WBC RDW 16.0 H Neutrophils # APTT 51.7 H Glucose 136 H POC Glucose (mg/dL) AST 53 H ALT 40 H Alkaline Phosphatase Troponin I Total Protein 6.2 L 12/02/20 12/02/20 07:34 12:12 WBC RDW Neutrophils # APTT Glucose POC Glucose (mg/dL) 145 H AST ALT Alkaline Phosphatase Troponin I 0.038 H* Total Protein - Diagnostic Findings Chest x-ray: image reviewed (As noted in HPI.) Additional studies: Ultrasound of the chest showed moderate bilateral pleural effusions right more so than left. Assessment and Plan Assessment: Impression: Acute systolic congestive heart failure Abnormal troponins, possible non-ST elevation myocardial infarction Suspect ischemic cardiomyopathy and LV dysfunction. Bilateral pleural effusions secondary to above. Suspect underlying COPD, however her shortness of breath is mostly secondary to her cardiac condition and bilateral pleural effusions, her COPD is presently in active. History of tobacco dependence syndrome. History of cannabis use. History of breast cancer in 2003 and previous bilateral mastectomies. Followed by chemo and radiation therapy. Recommendation: Continue diuretics/Lasix. Continue bronchodilators. Continue heparin. No clear-cut indication for thoracentesis at this point since clinically the patient seems to have pleural effusion secondary to heart failure. And that should improve with diuresis Continue GI and DVT prophylaxis. Prognosis is definitely guarded. We'll continue to follow. Again no need for thoracentesis at this point, believe the patient should improve with diuretics only. Time with Patient: Greater than 30
[2020-12-02] MEDS ORDERED: FUROSEMIDE 10 MG/ML 4 ML VIAL IV SCH ×2 (16:00→21:00)
[2020-12-02] MEDS ORDERED: methylPREDNISolone SOD SUCCI 40 MG/ML 1 ML VIAL IV SCH (16:00)
[2020-12-02 17:02] LABS: Glucose,Whole Blood 95 mg/dL (75-99)
[2020-12-02] MEDS: SODIUM CHLORIDE 0.9% 1,000 ML IV SCH (17:22)
[2020-12-02] MEDS: HEPARIN SOD,PORK IN 0.45% NACL 25,000 UNIT in 0.45% NACL 1 250ML.BAG IV SCH (17:31)
[2020-12-02] MEDS ORDERED: MIDODRINE 5 MG TAB PO ONE (21:00)
[2020-12-02] MEDS: SYMBICORT 160-4.5 MCG INHALER INHALATION SCH (21:56)
[2020-12-03] MEDS: FUROSEMIDE 10 MG/ML 2 ML VIAL IV SCH ×4 (00:52→17:26)
--- NOTE | 2020-12-03 07:30 | XR ---
EXAMINATION TYPE: XR chest 1V portable DATE OF EXAM: 12/03/2020 COMPARISON: 12/01/2020 HISTORY: Cough and shortness of breath TECHNIQUE: Single frontal view of the chest is obtained. FINDINGS: There is a moderate left pleural effusion and small right pleural effusion both unchanged compared to the prior study. There are multiple metallic clips in the left axillary region and in the left hilar region. There is no pneumothorax. The upper lung tinsley are clear. Heart size is normal and the pulmonary vasculature is not congested. IMPRESSION: Bilateral pleural effusions unchanged compared to the prior study.
[2020-12-03] MEDS: SYMBICORT 160-4.5 MCG INHALER INHALATION SCH ×2 (07:33→20:39)
[2020-12-03] MEDS: IPRATROPIUM-ALBUTEROL 3 ML NEB INHALATION SCH ×4 (07:33→20:39)
[2020-12-03] MEDS: METOPROLOL TARTRATE 25 MG TAB PO SCH ×2 (08:01→20:20)
[2020-12-03] MEDS: PANTOPRAZOLE 40 MG/10 ML VIAL IVP SCH ×2 (08:01→20:19)
[2020-12-03] MEDS: ASPIRIN 81 MG PO SCH (08:01)
[2020-12-03 10:33] LABS: Albumin 3.6 g/dL (3.5-5.0); Calcium 8.7 mg/dL (8.4-10.2); Magnesium 1.7 mg/dL (1.6-2.3); Potassium 3.3 mmol/L (3.5-5.1); Total Bilirubin 0.6 mg/dL (0.2-1.3)
[2020-12-03] MEDS ORDERED: Magnesium Replacement Protocol 1 EACH MISC MISCELLANE PRN (12:18)
[2020-12-03] MEDS ORDERED: Potassium Replacement Protocol 1 EACH MISC MISCELLANE PRN (12:18)
[2020-12-03] MEDS: SPIRONOLACTONE 25 MG TAB PO SCH (12:21)
--- NOTE | 2020-12-03 12:25 | P.PN ---
Subjective This is a pleasant 60 years old female with no significant past medical history. She follows up with Dr. Alexander recently. She recently moved from [place] to [place]. Patient is heavy smoker smokes about 1 pack per day but no alcohol. She uses p ot at times. Presents because of dyspnea over the last 3 weeks, her dyspnea got worse over the last couple days and she decided to come to emergency room. Her dyspnea is not associated with any chest pain or cough or phlegm. However she complains from epigastric pain for the last 2 weeks but mild about 1/10 , feels like tightness No nausea vomiting or diarrhea. No dysuria or change in urinary habits or frequency. He denies headache, weakness or numbness or blurred vision or slurred speech. However her chest pain is associated with numbness in her left upper extremity and fingers for the last 3 weeks. She is a slightly tachycardic and tender to 2, blood pressure is low normal with systolic BP above 100. Labs reviewed: CBC showed mild leukocytosis with 11.7 K, mild increased LFTs. Troponin is high at 0.04. Line chest x-ray showing bilateral pleural effusion with atelectasis. In the emergency room patient was started on heparin drip and aspirin. 12/02/2020 Patient is dyspneic today however her breathing still cannot past. she is on 2 L oxygen via nasal cannula and saturating 98% . CBC and BMP are unremarkable and creatinine normal. She still has decreased air entering on both sides of the lung. Her troponin were elevated again slightly today to 0.038. ProBNP is elevated 8800. Echocardiogram today showing ejection fraction less than 20% with wall hypokinesia, also severe MR, moderate TR and moderate pulmonary hypertension. Large pleural effusion. Continue with heparin drip, increase Lasix to 40 mg twice daily. Start Solu-Medro. Pulmonary consult in view large pleural effusion we will order ultrasound of the chest. Start Protonix 40 mg twice daily. 12/03/2020 Patient breathing improved, and no crepitation on her chest examination but they're still decreased breath sounds and basal areas due to her pleural effusion. Tachycardia improved and other vitals are normal. Creatinine and other labs are unremarkable. Mildly elevated liver enzymes. Yesterday night her blood pressure went down to 80s over 40s so we lowered the dose of Lasix 40 mg down to 20 mg 3 times a day. And 1 time dose of medial drain is provided. This morning her blood pressure is 105/56. She is on fluid restriction. She is on heparin drip and Aldactone and lisinopril as well as aspirin 81 mg. Echocardiogram showed ejection fraction 20% with hypokinesia. Cartilage team on the case. No need for thoracocentesis Objective - Vital Signs Vital signs: Vital Signs Temp 97.9 F 12/03/20 11:10 Pulse 83 12/03/20 11:10 Resp 18 12/03/20 11:10 BP 105/56 12/03/20 11:10 Pulse Ox 93 L 12/03/20 11:10 Intake & Output 12/02/20 12/03/20 12/03/20 18:59 06:59 18:59 Intake Total 480 Balance 480 Weight 62.5 kg Intake: Oral 480 Other: Voiding Method Toilet # Voids 1 1 - Exam GENERAL: The patient is alert and oriented x3, not in any acute distress. Well developed, well nourished. HEENT: Pupils are round and equally reacting to light. EOMI. No scleral icterus. No conjunctival pallor. Normocephalic, atraumatic. No pharyngeal erythema. No thyromegaly. CARDIOVASCULAR: S1 and S2 present. No murmurs, rubs, or gallops. -PULMONARY: Chest is clear to auscultation, Decreased breath sounds on the basis. Expiratory wheezing ABDOMEN: Soft, nontender, nondistended, normoactive bowel sounds. No palpable organomegaly. MUSCULOSKELETAL: No joint swelling or deformity. EXTREMITIES: No cyanosis, clubbing, or pedal edema. NEUROLOGICAL: Gross neurological examination did not reveal any focal deficits. SKIN: No rashes. no petechiae. - Labs CBC & Chem 7: 12/02/20 07:34 12/03/20 09:53 Labs: Abnormal Lab Results - Last 24 Hours (Table) 12/03/20 12/03/20 Range/Units 09:53 09:53 APTT 62.5 H (22.0-30.0) sec Potassium 3.3 L (3.5-5.1) mmol/L Carbon Dioxide 31 H (22-30) mmol/L BUN 30 H (7-17) mg/dL Glucose 183 H (74-99) mg/dL AST 68 H (14-36) U/L ALT 47 H (4-34) U/L Alkaline Phosphatase 156 H (38-126) U/L Total Protein 6.0 L (6.3-8.2) g/dL Assessment and Plan Assessment: Acute coronary artery syndrome, possible non-STEMI Ischemic cardiomyopathy with ejection fraction less than 20% Severe MR, moderate TR, moderate pulmonary hypertension Bilateral pleural effusion, rule out CHF Acute COPD exacerbation Nicotine dependence Plan: This is a pleasant 60 years old female who presents with non-STEMI. Patient to continue with heparin drip, aspirin 81 mg. Continue with Lasix 20 mg twice daily. Cardiology and pulmonary consult. Continue with heparin drip, continue with aspirin Solu-Medrol and lisinopril were added Labs and medication were reviewed.. Continue same treatment. Continue with symptomatic treatment. Resume home medication. Monitor lytes and vitals. DVT and GI prophylaxis. Further recommendationsas per clinical course of the patient DVT prophylaxis: heparin GI Prophylaxis: Ppi PT/OT: Pending Prognosis is guarded
--- NOTE | 2020-12-03 12:27 | P.PN ---
Subjective Progress Note Date: 12/03/20 Principal diagnosis: Acute exacerbation of chronic systolic congestive heart failure This is a 60-year-old female history of breast cancer back in 2003, COPD, not O2 dependent, however the patient is known to have tobacco dependence syndrome, she is at least a [id number] smoker. Patient is primarily a patient of Dr. Pulido, she was admitted to the hospital yesterday with 3 days history of increased shortness of breath. Patient describes cough, cough is productive with clear phlegm, no fever, no chills, no hemoptysis, no chest pain. Chest x- ray on admission showed bilateral pleural effusions. And it also showed some bibasilar atelectasis. Echocardiogram showed severe LV dysfunction with ejection fraction of less than 20%. EKG showed nonspecific ST and T wave isabel nges. Labs were basically unremarkable except for elevated troponin, negative PCR for COVID-19 infection, elevated BNP of 8800. Considering the patient has bilateral pleural effusions I was asked to see the patient on consultation. However based on the clinical history and based on the abnormal echocardiogram, the pleural effusions are clearly cardiac related, and no need for thoracentesis at this point, would only recommend aggressive medical therapy/diuretics. In the meantime the patient is being followed by cardiology for further evaluation of her cardiomyopathy and LV dysfunction. Patient is now on heparin, mostly for abnormal troponin and PTT is therapeutic. The patient is seen today 12/03/2020 in follow-up on the selective care unit. She is currently sitting up in bed. Awake and alert in no acute distress. Breathing a bit easier today compared to yesterday. Maintaining O2 saturations in the 90s on room air. She's afebrile. Hemodynamically stable. Chest x-ray continues showed bilateral pleural effusions left greater than right. Sodium 138. Potassium 3.3. Creatinine 0.95. Glucose 183. AST 68. ALT 47. Continue on Lasix 20 mg IV every 8 hours. Remains on Symbicort, DuoNeb inhalations. No accurate I & O however the patient states she is urinating quite frequently. Objective - Vital Signs Vital signs: Vital Signs Temp 97.9 F 12/03/20 11:10 Pulse 83 12/03/20 11:10 Resp 18 12/03/20 11:10 BP 105/56 12/03/20 11:10 Pulse Ox 93 L 12/03/20 11:10 Intake & Output 12/02/20 12/03/20 12/03/20 18:59 06:59 18:59 Intake Total 480 Balance 480 Weight 62.5 kg Intake: Oral 480 Other: Voiding Method Toilet # Voids 1 1 - Exam GENERAL EXAM: Alert, 60-year-old female patient, on room air, in no apparent distress. HEAD: Normocephalic. EYES: Normal reaction of pupils, equal size. NOSE: Clear with pink turbinates. THROAT: No erythema or exudates. NECK: No masses, no JVD. CHEST: No chest wall deformity. LUNGS: Equal air entry with crackles in the bilateral posterior bases left greater than right. CVS: S1 and S2 normal with no audible murmur, regular rhythm. ABDOMEN: No hepatosplenomegaly, normal bowel sounds, no guarding or rigidity. SPINE: No scoliosis or deformity SKIN: No rashes CENTRAL NERVOUS SYSTEM: No focal deficits, tone is normal in all 4 extremities. EXTREMITIES: There is no peripheral edema. No clubbing, no cyanosis. Peripheral pulses are intact. - Labs CBC & Chem 7: 12/02/20 07:34 12/03/20 09:53 Labs: Abnormal Lab Results - Last 24 Hours (Table) 12/03/20 12/03/20 Range/Units 09:53 09:53 APTT 62.5 H (22.0-30.0) sec Potassium 3.3 L (3.5-5.1) mmol/L Carbon Dioxide 31 H (22-30) mmol/L BUN 30 H (7-17) mg/dL Glucose 183 H (74-99) mg/dL AST 68 H (14-36) U/L ALT 47 H (4-34) U/L Alkaline Phosphatase 156 H (38-126) U/L Total Protein 6.0 L (6.3-8.2) g/dL Assessment and Plan Assessment: 1 Acute exacerbation of chronic systolic congestive heart failure, ejection fraction less than 20% 2 Abnormal troponins, possible non-ST elevation myocardial infarction 3 Suspect ischemic cardiomyopathy and LV dysfunction. 4 Bilateral pleural effusions secondary to above. 5 Suspect underlying COPD, however her shortness of breath is mostly secondary to her cardiac condition and bilateral pleural effusions, her COPD is presently in active. 6 History of tobacco dependence syndrome. 7 History of cannabis use. 8 History of breast cancer in 2004 and previous bilateral mastectomies. Followed by chemo and radiation therapy. Plan: The patient was seen and evaluated by Dr. Fitch Chest x-ray and labs reviewed Improving from the pulmonary standpoint No plans for thoracentesis at this time Continue diuretics We will continue to follow I, the cosigning physician, performed a history & physical examination of the patient. Lungs sounds with crackles in the bilateral bases, left greater than right. Maintaining good O2 saturations in the 90s on room air. I discussed the assessment and plan of care with my nurse practitioner, Sammi Sauceda. I attest to the above note as dictated by her.
[2020-12-03] MEDS ORDERED: SODIUM CHLORIDE 0.9% 1,000 ML in EMPTY BAG 1 BAG IV ONE (12:51)
[2020-12-03] MEDS ORDERED: ALPRAZolam 0.25 MG TAB PO PRN (12:51)
[2020-12-03] MEDS ORDERED: ALPRAZolam 0.5 MG TAB PO PRN (12:51)
[2020-12-03] MEDS ORDERED: ASPIRIN 325 MG TAB PO STA (12:51)
[2020-12-03] MEDS ORDERED: NITROGLYCERIN SL TABS 0.4 MG TAB SUBLINGUAL PRN (12:51)
[2020-12-03] MEDS ORDERED: ATORVASTATIN 80 MG TAB PO STA (12:51)
--- NOTE | 2020-12-03 13:13 | PN ---
PROGRESS NOTE Mrs. Lopez is a 60-year-old female who presented with symptoms of progressive dyspnea. She has history of chronic tobacco use and was found to have evidence of congestive heart failure with ejection fraction less than 20% with severe mitral and moderate tricuspid regurgitation and moderate to severe pulmonary hypertension. She is feeling better today. Her cough is better. She denies any chest pain. She denies any dizziness or palpitations. She continues to be on aspirin once a day, furosemide 20 mg IV q.8 hours, IV heparin, lisinopril 2.5 mg daily, metoprolol tartrate 25 mg twice a day and spironolactone 25 mg daily. PHYSICAL EXAMINATION: Blood pressure 105/56 with a heart rate in the 80s. LUNGS: With decreased breath sounds at the bases, no wheezes. HEART: Regular rate and rhythm S1, S2. No S3 with systolic murmur at the apex. No diastolic murmur. ABDOMEN: Soft and nontender. EXTREMITIES: No edema. LAB DATA: Lab data revealed BUN and creatinine 30 and 0.95, potassium 3.3, AST of 68, ALT of 47. IMPRESSION: 1. Congestive heart failure with severe systolic dysfunction of unknown duration or etiology. 2. History of chronic tobacco use. 3. History of breast cancer status post chemotherapy and radiation. 4. Mild troponin elevation most likely related to her congestive heart failure. RECOMMENDATION: We will continue present therapy and follow her renal function. We will tentatively proceed with cardiac catheterization on Saturday. I discussed with her the rationale behind that and the risks and the complication. She is in full understanding and agreement. MMODL / IJN: [id number] /
[2020-12-03 13:39] LABS: Chol/HDL Ratio 3.44; LDL Cholesterol,Calculated 92.2 mg/dL (0.0-131.0); VLDL Calculation 12.8 mg/dL (5.00-40.00)
[2020-12-03] MEDS: HEPARIN SOD,PORK IN 0.45% NACL 25,000 UNIT in 0.45% NACL 1 250ML.BAG IV SCH (15:47)
[2020-12-03] MEDS: SODIUM CHLORIDE 0.9% 1,000 ML IV SCH (15:47)
[2020-12-04] MEDS: FUROSEMIDE 10 MG/ML 2 ML VIAL IV SCH ×2 (00:07→08:20)
[2020-12-04] MEDS ORDERED: HEPARIN SODIUM,PORCINE 2,500 UNIT in SODIUM CHLORIDE 0.9% 250 ML IRRIGATION PRN (07:00)
[2020-12-04] MEDS ORDERED: HEPARIN SODIUM,PORCINE 10,000 UNIT in SODIUM CHLORIDE 0.9% 1,000 ML IRRIGATION PRN (07:00)
[2020-12-04] MEDS: IPRATROPIUM-ALBUTEROL 3 ML NEB INHALATION SCH ×4 (07:34→20:27)
[2020-12-04] MEDS: SYMBICORT 160-4.5 MCG INHALER INHALATION SCH ×2 (07:34→20:27)
[2020-12-04] MEDS: PANTOPRAZOLE 40 MG/10 ML VIAL IVP SCH (08:20)
[2020-12-04] MEDS: SPIRONOLACTONE 25 MG TAB PO SCH (08:20)
[2020-12-04] MEDS: ASPIRIN 81 MG PO SCH (08:20)
[2020-12-04] MEDS: METOPROLOL TARTRATE 25 MG TAB PO SCH ×2 (08:20→20:30)
[2020-12-04 09:11] LABS: Calcium 8.9 mg/dL (8.4-10.2); Magnesium 1.8 mg/dL (1.6-2.3); Potassium 3.5 mmol/L (3.5-5.1)
--- NOTE | 2020-12-04 12:08 | P.PN ---
Subjective This is a pleasant 60 years old female with no significant past medical history. She follows up with Dr. Alexander recently. She recently moved from [place] to [place]. Patient is heavy smoker smokes about 1 pack per day but no alcohol. She uses p ot at times. Presents because of dyspnea over the last 3 weeks, her dyspnea got worse over the last couple days and she decided to come to emergency room. Her dyspnea is not associated with any chest pain or cough or phlegm. However she complains from epigastric pain for the last 2 weeks but mild about 1/10 , feels like tightness No nausea vomiting or diarrhea. No dysuria or change in urinary habits or frequency. He denies headache, weakness or numbness or blurred vision or slurred speech. However her chest pain is associated with numbness in her left upper extremity and fingers for the last 3 weeks. She is a slightly tachycardic and tender to 2, blood pressure is low normal with systolic BP above 100. Labs reviewed: CBC showed mild leukocytosis with 11.7 K, mild increased LFTs. Troponin is high at 0.04. Line chest x-ray showing bilateral pleural effusion with atelectasis. In the emergency room patient was started on heparin drip and aspirin. 12/02/2020 Patient is dyspneic today however her breathing still cannot past. she is on 2 L oxygen via nasal cannula and saturating 98% . CBC and BMP are unremarkable and creatinine normal. She still has decreased air entering on both sides of the lung. Her troponin were elevated again slightly today to 0.038. ProBNP is elevated 8800. Echocardiogram today showing ejection fraction less than 20% with wall hypokinesia, also severe MR, moderate TR and moderate pulmonary hypertension. Large pleural effusion. Continue with heparin drip, increase Lasix to 40 mg twice daily. Start Solu-Medro. Pulmonary consult in view large pleural effusion we will order ultrasound of the chest. Start Protonix 40 mg twice daily. 12/03/2020 Patient breathing improved, and no crepitation on her chest examination but they're still decreased breath sounds and basal areas due to her pleural effusion. Tachycardia improved and other vitals are normal. Creatinine and other labs are unremarkable. Mildly elevated liver enzymes. Yesterday night her blood pressure went down to 80s over 40s so we lowered the dose of Lasix 40 mg down to 20 mg 3 times a day. And 1 time dose of medial drain is provided. This morning her blood pressure is 105/56. She is on fluid restriction. She is on heparin drip and Aldactone and lisinopril as well as aspirin 81 mg. Echocardiogram showed ejection fraction 20% with hypokinesia. Cartilage team on the case. No need for thoracocentesis 12/04/2020 this is a pleasant 60 years old female presents withDyspnea, elevated troponin and low ejection fraction less than 20%. Also she has bilateral pleural effusion but childbirth and infant care teacher does not think this to take thoracocentesis. Also echo shows severe MR, moderate TR and moderate pulmonary hypertension. Cardiology on the case for possible cardiac cath No dyspnea at rest, patient still has exertional dyspnea, epigastric pain and tenderness improving but not dissected. This to 3 days of twice a day Protonix. She has history of peptic ulcer disease at age 16. No overt chest pain. Patient does not want IV heparin infusion anymore, however she has been taking it for 48 hours/2 days, cardiology on the case and further recommendation regarding anticoagulation. if There is no further recommendation then it can be started on Lovenox tonight her IV Lasix was switched to 20 mg twice a day by vertical mill operator, will increase the dose to 40 mg twice daily.patient blood pressure is acceptable and creatinine within the reference range. patient also is on aspirin 81 mg. Type Copy Examiner added lisinopril and Aldactone. also we will consult GI team for Patient, persistent epigastric pain despite treatment with PPI. And the patient may need to dual antiplatelet therapy down the road Objective - Vital Signs Vital signs: Vital Signs Temp 98 F 12/04/20 11:15 Pulse 77 12/04/20 11:15 Resp 18 12/04/20 11:19 BP 133/57 12/04/20 11:15 Pulse Ox 94 L 12/04/20 11:15 Intake & Output 12/03/20 12/04/20 12/04/20 18:59 06:59 18:59 Intake Total 120 200.104 Output Total 110 Balance 120 90.104 Weight 62 kg Intake: Intake, IV Titration 200.104 Amount Heparin Sod,Pork in 0.45% 200.104 NaCl 25,000 unit In 0.45 % NaCl 1 250ml.bag @ 12 UNITS/KG/HR 6.804 mls/hr IV .Q24H [facility] Rx#: [id number] Oral 120 Output: Urine 110 Other: Voiding Method Toilet # Voids 1 - Exam GENERAL: The patient is alert and oriented x3, not in any acute distress. Well developed, well nourished. HEENT: Pupils are round and equally reacting to light. EOMI. No scleral icterus. No conjunctival pallor. Normocephalic, atraumatic. No pharyngeal erythema. No thyromegaly. CARDIOVASCULAR: S1 and S2 present. No murmurs, rubs, or gallops. -PULMONARY: Chest is clear to auscultation, Decreased breath sounds on the basis. Expiratory wheezing ABDOMEN: Soft, nontender, nondistended, normoactive bowel sounds. No palpable organomegaly. MUSCULOSKELETAL: No joint swelling or deformity. EXTREMITIES: No cyanosis, clubbing, or pedal edema. NEUROLOGICAL: Gross neurological examination did not reveal any focal deficits. SKIN: No rashes. no petechiae. - Labs CBC & Chem 7: 12/02/20 07:34 12/04/20 08:28 Labs: Abnormal Lab Results - Last 24 Hours (Table) 12/04/20 Range/Units 08:28 Carbon Dioxide 34 H (22-30) mmol/L BUN 26 H (7-17) mg/dL Glucose 146 H (74-99) mg/dL Assessment and Plan Assessment: Acute coronary artery syndrome, possible non-STEMI Ischemic cardiomyopathy with ejection fraction less than 20% Severe MR, moderate TR, moderate pulmonary hypertension Bilateral pleural effusion, rule out CHF Epigastric pain and tenderness, rule out peptic ulcer disease COPD, no acute exacerbation Nicotine dependence Plan: This is a pleasant 60 years old female who presents with non-STEMI. Patient to continue with heparin drip (patient refuses), aspirin 81 mg. Continue with Lasix 40 mg orallytwice daily. Cardiology and pulmonary consult. Continue with aspirin consults GI for Epigastric tenderness Labs and medication were reviewed.. Continue same treatment. Continue with symptomatic treatment. Resume home medication. Monitor lytes and vitals. DVT and GI prophylaxis. Further recommendationsas per clinical course of the patient DVT prophylaxis: lovenox GI Prophylaxis: Ppi PT/OT: Pending Prognosis is guarded
--- NOTE | 2020-12-04 12:15 | PN ---
PROGRESS NOTE Mrs. Lopez is a 60-year-old female with a history of chronic tobacco use, who presented with symptoms of congestive heart failure was found to have severe cardiomyopathy and mitral regurgitation. She is feeling better this morning. Her breathing is better. She denies any chest pain. She denies any dizziness or palpitation. She continued to be on aspirin once a day, Lipitor 80 mg daily, furosemide 20 mg IV q.8 hours, lisinopril 2.5 mg daily, metoprolol tartrate 25 mg twice a day, Aldactone 25 mg daily. PHYSICAL EXAMINATION: Blood pressure 133/50 with a heart rate in the 70s. LUNGS: Clear. HEART: Regular rate and rhythm, S1, S2. No S3 with a holosystolic murmur. No rub. ABDOMEN: Soft, nontender. EXTREMITIES: No edema. LAB DATA: Lab data revealed BUN and creatinine 26 and 0.93. Potassium 3.5. IMPRESSION: 1. Severe cardiomyopathy of unknown etiology. 2. Severe mitral regurgitation, unknown duration. 3. History of chronic tobacco use. 4. History of breast cancer status post chemotherapy and radiation. RECOMMENDATION: I will switch her to oral diuretics. Continue the rest of her medication. I will adjust the dose of her RC inhibitor. We will proceed with coronary angiography tomorrow and she may require a VITO to further evaluate her valvular disease. I have discussed with her the findings and recommendations as well as risks and complications. FARIDEH / MARY: [id number] /
--- NOTE | 2020-12-04 13:39 | P.PN ---
Subjective Progress Note Date: 12/04/20 Principal diagnosis: Acute systolic congestive heart failure This is a 60-year-old female history of breast cancer back in 2003, COPD, not O2 dependent, however the patient is known to have tobacco dependence syndrome, she is at least a [id number] smoker. Patient is primarily a patient of Dr. Pulido, she was admitted to the hospital yesterday with 3 days history of increased shortness of breath. Patient describes cough, cough is productive with clear phlegm, no fever, no chills, no hemoptysis, no chest pain. Chest x- ray on admission showed bilateral pleural effusions. And it also showed some bibasilar atelectasis. Echocardiogram showed severe LV dysfunction with ej ection fraction of less than 20%. EKG showed nonspecific ST and T wave changes. Labs were basically unremarkable except for elevated troponin, negative PCR for COVID-19 infection, elevated BNP of 8800. Considering the patient has bilateral pleural effusions I was asked to see the patient on consultation. However based on the clinical history and based on the abnormal echocardiogram, the pleural effusions are clearly cardiac related, and no need for thoracentesis at this point, would only recommend aggressive medical therapy/diuretics. In the meantime the patient is being followed by cardiology for further evaluation of her cardiomyopathy and LV dysfunction. Patient is now on heparin, mostly for abnormal troponin and PTT is therapeutic. The patient is seen today 12/03/2020 in follow-up on the selective care unit. She is currently sitting up in bed. Awake and alert in no acute distress. Breathing a bit easier today compared to yesterday. Maintaining O2 saturations in the 90s on room air. She's afebrile. Hemodynamically stable. Chest x-ray continues showed bilateral pleural effusions left greater than right. Sodium 138. Potassium 3.3. Creatinine 0.95. Glucose 183. AST 68. ALT 47. Continue on Lasix 20 mg IV every 8 hours. Remains on Symbicort, DuoNeb inhalations. No accurate I & O however the patient states she is urinating quite frequently. Reevaluated today on 12/04/2020, patient is being treated for acute systolic congestive heart failure and COPD with bilateral pleural effusions, responding well to bronchodilators and diuretics. She is now on room air at 94% saturation. Dramatic improvement over the last 2 days, patient did not require thoracentesis, and based on her progress she will most likely not require thoracentesis. Patient is being followed by cardiology for her LV dysfunction, she may require further cardiac workup. Electrolytes are normal. Renal profile is normal. Follow-up chest x-ray will be done tomorrow for follow-up on her pleural effusions and congestive heart failure. I did not feel the patient would need or require thoracentesis Objective - Vital Signs Vital signs: Vital Signs Temp 98 F 12/04/20 11:15 Pulse 77 12/04/20 11:15 Resp 18 12/04/20 11:19 BP 133/57 12/04/20 11:15 Pulse Ox 94 L 12/04/20 11:15 Intake & Output 12/03/20 12/04/20 12/04/20 18:59 06:59 18:59 Intake Total 120 200.104 Output Total 110 Balance 120 90.104 Weight 62 kg Intake: Intake, IV Titration 200.104 Amount Heparin Sod,Pork in 0.45% 200.104 NaCl 25,000 unit In 0.45 % NaCl 1 250ml.bag @ 12 UNITS/KG/HR 6.804 mls/hr IV .Q24H [facility] Rx#: [id number] Oral 120 Output: Urine 110 Other: Voiding Method Toilet # Voids 1 - Exam Physical Exam: Revealed 60-year-old female , on room air, not in distress. HEENT:[Neck is supple.] [No neck masses.] [No thyromegaly.] Positive JVD. Chest: [Symmetrical chest expansion, diminished breath sounds at the bases with dullness. No rhonchi no wheezes. Cardiac Exam: Normal S1 and S2, 2/6 systolic murmur thought the precordium. Abdomen: [Soft, nontender, no megaly, no rebound, no guarding, normal bowel sounds.] Extremities: [No clubbing, trace of bipedal edema, no cyanosis.] Good pulses bilaterally. Neurological Exam: [No focal neurologic deficit.] Alert and oriented 3. Psychiatric: Normal mood, affect and normal mental status examination. Skin: Surgical scars of bilateral mastectomies. Noted. Musculoskeletal: No deformities and no limitation in range of motion. - Labs CBC & Chem 7: 12/02/20 07:34 12/04/20 08:28 Labs: Abnormal Lab Results - Last 24 Hours (Table) 12/04/20 Range/Units 08:28 Carbon Dioxide 34 H (22-30) mmol/L BUN 26 H (7-17) mg/dL Glucose 146 H (74-99) mg/dL Assessment and Plan Assessment: Impression: Acute systolic congestive heart failure Abnormal troponins, possible non-ST elevation myocardial infarction Suspect ischemic cardiomyopathy and LV dysfunction. Bilateral pleural effusions secondary to above. Suspect underlying COPD, however her shortness of breath is mostly secondary to her cardiac condition and bilateral pleural effusions, her COPD is presently in active. History of tobacco dependence syndrome. History of cannabis use. History of breast cancer in 2003 and previous bilateral mastectomies. Followed by chemo and radiation therapy. Recommendation: Continue diuretics/Lasix. Continue bronchodilators. Continue Lovenox. No clear-cut indication for thoracentesis at this point since clinically the patient seems to have pleural effusion secondary to heart failure. And that should improve with diuresis Continue GI and DVT prophylaxis. Follow-up chest x-ray in a.m. Prognosis is definitely guarded. We'll continue to follow. Time with Patient: Less than 30
[2020-12-04] MEDS: SODIUM CHLORIDE 0.9% 1,000 ML IV SCH (15:41)
[2020-12-04] MEDS: HEPARIN SOD,PORK IN 0.45% NACL 25,000 UNIT in 0.45% NACL 1 250ML.BAG IV SCH (15:41)
[2020-12-04] MEDS: PANTOPRAZOLE 40 MG TABLET PO SCH (15:41)
[2020-12-04] MEDS: FUROSEMIDE 40 MG TAB PO SCH (15:41)
[2020-12-04] MEDS ORDERED: FUROSEMIDE 20 MG TAB PO SCH (16:00)
[2020-12-04] MEDS: ENOXAPARIN 40 MG/0.4 ML SYRINGE SQ SCH (20:30)
[2020-12-05] MEDS: ASPIRIN 81 MG PO SCH (05:27)
[2020-12-05] MEDS: FUROSEMIDE 40 MG TAB PO SCH ×2 (05:28→17:56)
[2020-12-05] MEDS: PANTOPRAZOLE 40 MG TABLET PO SCH (05:31)
[2020-12-05] MEDS: METOPROLOL TARTRATE 25 MG TAB PO SCH ×2 (05:31→20:01)
[2020-12-05] MEDS: SPIRONOLACTONE 25 MG TAB PO SCH (05:45)
[2020-12-05] MEDS ORDERED: ATORVASTATIN 80 MG TAB PO ONE (06:00)
[2020-12-05] MEDS ORDERED: ASPIRIN 325 MG TAB PO ONE (06:00)
--- NOTE | 2020-12-05 06:58 | XR ---
EXAMINATION TYPE: XR chest 1V portable DATE OF EXAM: 12/05/2020 CLINICAL HISTORY: Difficulty breathing and CHF progress study. TECHNIQUE: Single AP portable upright view of the chest is obtained. COMPARISON: Chest x-ray from 2 and 4 days earlier FINDINGS: Left axillary and right lower thoracic surgical clips redemonstrated. Additional surgical clips left hilar level again seen. Background chronic emphysematous change with small left greater th an right pleural effusions and associated compressive atelectasis. Stable mild cardiomegaly. Backgrou nd Chronic emphysematous change. Osseous structures are intact. IMPRESSION: Chronic emphysematous change and mild cardiomegaly with small left greater than right ple ural effusions redemonstrated. No significant change from most recent study.
[2020-12-05] MEDS ORDERED: IV FLUID CONTINUATION 500 ML IV ONE (07:28)
[2020-12-05] MEDS ORDERED: SODIUM CHLORIDE 0.9% 500 ML 500 ML IV ONE (07:28)
[2020-12-05] MEDS ORDERED: fentaNYL (PF) 50 MCG/ML 2 ML AMP IVP ONE (08:00)
[2020-12-05] MEDS ORDERED: LIDOCAINE 1% INJ 10MG/ML (20 ML MDV) SQ ONE (08:02)
[2020-12-05] MEDS ORDERED: MIDAZOLAM 2 MG/2 ML VIAL IVP ONE (08:03)
[2020-12-05] MEDS ORDERED: VERAPAMIL SYRINGE (5 MG/10 ML) INTRAARTER ONE (08:10)
[2020-12-05] MEDS ORDERED: HEPARIN SODIUM 1,000 UN/ML (10ML VL) IV ONE ×2 (08:16)
[2020-12-05] MEDS ORDERED: IOPAMIDOL-370 125ML BTL INJ ONE (08:23)
[2020-12-05] MEDS: IPRATROPIUM-ALBUTEROL 3 ML NEB INHALATION SCH ×4 (08:24→19:06)
[2020-12-05] MEDS: SYMBICORT 160-4.5 MCG INHALER INHALATION SCH ×2 (08:24→19:06)
[2020-12-05] MEDS ORDERED: RX INFO: IV CONTRAST WAS GIVEN 1 EACH MISC MISCELLANE PRN (08:35)
[2020-12-05] MEDS ORDERED: SODIUM CHLORIDE 0.9% 1,000 ML IV SCH ×2 (08:45→13:15)
[2020-12-05] MEDS: PANTOPRAZOLE 40 MG/10 ML VIAL IVP SCH ×2 (10:15→19:56)
--- NOTE | 2020-12-05 10:18 | CC ---
CARDIAC CATHETERIZATION REPORT Mrs. Lopez is a 60-year-old female who presented to the hospital with symptoms of progressive dyspnea and evidence of congestive heart failure. She underwent an echocardiogram that was consistent with severe cardiomyopathy with significant mitral regurgitation. She was treated medically and recommendation made regarding cardiac catheterization to further assess her status and guide her treatment. The procedure as well as the risks and complications were discussed with the patient who is in full understanding and agreement. PROCEDURE: Patient was brought to laboratory manager in a fasting semi-sedated state after receiving fentanyl and Benadryl and achieving moderate conscious sedated state. Using Xylocaine anesthesia and Seldinger technique, a 6-[place] sheath was introduced in the right radial artery. Selective right and left coronary angiography performed using 5-[place] 3.5 bent, right and right and left Angelica catheter. Multiple views of the coronary artery including hemiaxial views obtained. Following that a 5-[place] tight pigtail catheter was introduced in the left ventricle and a 30-degree ROBERT view of the left ventricle was obtained. Following that, catheter and sheath were removed. Hemostasis was obtained with deployment of a TR band. There was no immediate complication. Patient was returned to room in stable condition. Of note, the patient received 3000 units of intravenous heparin as well as intra-arterial verapamil. FINDINGS: Left main: This is a large-sized vessel, bifurcating into left circumflex, left anterior descending artery. Left main coronary artery has no evidence of high-grade stenosis. Left anterior descending artery: This is a large-sized vessel reaching to the apex with a wraparound apex segment giving rise to two moderate-sized diagonal branches. The left anterior descending artery as well as its branches have no evidence of obstructive disease. Left circumflex: This is a nondominant vessel, large in caliber, giving rise to 2 obtuse marginal branches. The left circumflex as well as branches have no evidence of obstructive disease. Right coronary artery: The right coronary artery is a dominant vessel, moderate in caliber, bifurcating distally into PDA and posterolateral segment branches. The right coronary artery as well as branches have no evidence of obstructive disease. LEFT VENTRICULOGRAM: Left ventriculogram was performed in 30 degree UKRAINIAN view and revealed severe global hypokinesis with ejection fraction 15-20% with 3+ mitral regurgitation. HEMODYNAMICS: There was no gradient across the aortic valve. The left end-diastolic pressure was 20- 26 mmHg. CONCLUSION: 1. Normal coronary arteries. 2. Severe impairment of ventricular systolic function with a 3+ mitral regurgitation. 3. Elevated left ventricular end-diastolic pressure. RECOMMENDATION: In view of finding anatomy, I recommend maximize her medical therapy. The etiology of her cardiomyopathy is unclear. Will proceed to obtain transesophageal echocardiogram to further assess her valvular structures and guide her treatment. Those findings and recommendation were discussed with the patient and she has full understanding and agreement. Duration of procedure is 21 minute. MMODL / IJN: [id number] /
--- NOTE | 2020-12-05 10:26 | LTR ---
12/05/2020 RE: Sarai Lopez Dear Dr. Alexander I had the opportunity to perform cardiac catheterization on Mrs. Lopez at [facility] on 12/05/2020. A full copy of the procedure note will be forwarded to you. In brief, she was found to have no evidence of obstructive lung disease with severely impaired left ventricular systolic function and significant mitral regurgitation. In view of the findings, I will continue maximizing her medical therapy and I will proceed with evaluation for mitral valve apparatus by transesophageal echocardiogram to further guide her treatment. I will keep you updated on her progress. Thank you again for allowing me to participate in this patient's care. Please feel free to call with any questions. Sincerely, MD FARIDEH De La Cruz / IVONN: [id number] /
[2020-12-05 11:26] LABS: African American GFR (CKD) >90 (>60 ml/min/1.73 sqM); Anion Gap 6 mmol/L; Blood Urea Nitrogen 17 mg/dL (7-17); Calcium 8.8 mg/dL (8.4-10.2); Carbon Dioxide 37 mmol/L (22-30); Chloride 95 mmol/L (98-107); Glucose 95 mg/dL (74-99); Non-African American GFR(CKD) 86 (>60 ml/min/1.73 sqM); Potassium 3.2 mmol/L (3.5-5.1); Sodium 138 mmol/L (137-145)
[2020-12-05] MEDS ORDERED: fentaNYL (PF) 50 MCG/ML 2 ML AMP ONE (12:41)
[2020-12-05] MEDS ORDERED: IV FLUID CONTINUATION 800 ML IV ONE (12:49)
--- NOTE | 2020-12-05 12:49 | P.CONS ---
History of Present Illness - Reason for Consult Consult date: 12/05/20 Epigastric tenderness Requesting physician: Nathan E Sheet - Chief Complaint Shortness of breath - History of Present Illness This is a pleasant 60-year-old patient female who presented to the emergency department 3 days ago with complaints of shortness of breath with exertional dyspnea that progressively got worse over the last couple weeks. Patient states she has a history of asthma and ALLERGIES and thought it was just related to her ALLERGIES however he became more short of breath therefore came to the emergency department. She was noted to have an elevated troponin and underwent a cardiac catheterization this morning without any intervention. She is scheduled for a VITO this afternoon. Her past medical history includes asthma, alcohol abuse, breast cancer treated in 1999 or current every day smoker, and marijuana use. When asked, the patient denies any abdominal or epigastric pain. States she does have some tenderness if you push in the epigastric area however believes is related to all the coughing she's been doing. She states she does have a hi story of peptic ulcer disease 16 years old, she denies ever having a colonoscopy and does not recall if she ever had an EGD. She states she does have a history of acid reflux is currently not taking any medications. Patient denies any symptoms of GI bleeding including melena, coffee-ground emesis, hematemesis, or rectal bleeding. She denies any abdominal pain, nausea, or vomiting. States her bowel movements are normal and daily. WBC 9.6, hemoglobin 12.4, hematocrit 38, platelets 259,000, total bilirubin 0.6, alkaline phosphatase 156, AST 60, ALT 47. Review of Systems REVIEW OF SYSTEMS: CARDIOPULMONARY: No chest pain. Shortness of breath, cough. Gastrointestinal: No epigastric or abdominal pain. No nausea or vomiting. No hematemesis, coffee-ground emesis. No rectal bleeding, or melena. GENITOURINARY: No dysuria or hematuria. MUSCULOSKELETAL: Reports normal range of motion., Joint pain. SKIN: No rashes. No jaundice. ENDOCRINE: No chills, fevers. No excessive weight gain or loss. No polydipsia or polyuria. PSYCHIATRIC: Unremarkable. NEUROLOGY: No change in mental status. Denies dizziness, headache. ENT: Vision unremarkable. CONSTITUTIONAL: No recent weight loss. No fever, chills, night sweats. Past Medical History Past Medical History: Cancer Additional Past Medical History / Comment(s): Breast CA 2004 History of Any Multi-Drug Resistant Organisms: None Reported Past Surgical History: No Surgical Hx Reported Smoking Status: Current every day smoker Past Alcohol Use History: None Reported Past Drug Use History: Marijuana - Past Family History Father Family Medical History: CVA/TIA, Hypertension, Myocardial Infarction ([place]) Mother Family Medical History: Cancer Medications and Allergies Home Medications Medication Instructions Recorded Confirmed Type Fluticasone Propionate [Flovent 2 puff INHALATION RT-BID 12/01/20 12/01/20 History Diskus] Allergies Allergy/AdvReac Type Severity Reaction Status Date / Time morphine Allergy Rash/Hives Verified 12/01/20 13:44 Physical Exam Vitals: Vital Signs Temp Pulse Pulse Resp BP Pulse Ox 12/05/20 09:05 78 16 94/56 95 12/05/20 08:50 82 18 92/55 95 12/05/20 08:35 98 F 80 16 94/58 94 L 12/05/20 05:03 98.2 F 85 18 93/54 95 12/05/20 04:00 98.2 F 85 18 93/54 95 12/05/20 01:06 75 16 12/04/20 23:45 97.9 F 75 16 88/53 94 L 12/04/20 20:00 98.5 F 79 16 88/50 98 12/04/20 16:00 97.9 F 81 18 84/46 94 L 12/04/20 11:19 18 12/04/20 11:15 98 F 77 18 133/57 94 L 12/04/20 11:03 73 12/04/20 10:53 72 Intake and Output 12/04/20 12/05/20 12/05/20 22:59 06:59 14:59 Intake Total 360 50 Balance 360 50 Intake: IV 50 Oral 360 0 Other: Voiding Method Toilet Toilet # Voids 2 1 Weight 54.9 kg General appearance: The patient is alert, oriented, in no acute distress. HET: Head is normocephalic and atraumatic. Conjunctiva pink. Sclerae anicteric. Neck: Supple without lymphadenopathy. Trachea midline. Heart: S1 S2. Regular rate and rhythm. Lungs: Clear to auscultation. Abdomen: Soft, mild epigastric tenderness, nondistended with bowel sounds. No guarding or rigidity. Extremities: Normal skin color and turgor. No pedal edema. Neurological: No focal deficits. Alert and oriented 3. Results CBC & Chem 7: 12/02/20 07:34 12/05/20 10:38 Assessment and Plan (1) Epigastric pain Narrative/Plan: A 60-year-old female who presented to the emergency department with complaints of shortness of breath who has a history of asthma, cough abuse, current daily smoker who was admitted with bilateral pleural effusions. She was also noted to have elevated troponin and was taken for cardiac catheterization with no intervention. She is awaiting a VITO. She denies any abdominal pain or epigastric pain, nausea, or vomiting. States she does have a history of some acid reflux disease without any current medications. No previous history of colonoscopy, states she did have a remote history that she was 16 years old peptic ulcer disease for which she is unsure if she ever had an upper endoscopy for. She denies any signs of GI bleed occluding melena, coffee-ground emesis, rectal bleeding or hematemesis. We'll and Protonix IV push twice a day, no plans for endoscopic evaluation at this time. Current Visit: Yes Status: Acute Code(s): R10.13 - EPIGASTRIC PAIN SNOMED Code(s): 11283021 (2) GERD (gastroesophageal reflux disease) Current Visit: Yes Status: Acute Code(s): K21.9 - GASTRO-ESOPHAGEAL REFLUX DISEASE WITHOUT ESOPHAGITIS SNOMED Code(s): 116579915 (3) Bilateral pleural effusion Narrative/Plan: Pulmonology following Current Visit: Yes Status: Acute Code(s): J90 - PLEURAL EFFUSION, NOT ELSEWHERE CLASSIFIED SNOMED Code(s): 523417625 (4) Elevated troponin Narrative/Plan: Cardiology following. Patient underwent cardiac catheterization with no intervention. Current Visit: Yes Status: Acute Code(s): R77.8 - OTHER SPECIFIED ABNORMALITIES OF PLASMA PROTEINS SNOMED Code(s): 284032135 (5) Shortness of breath Current Visit: Yes Status: Acute Code(s): R06.02 - SHORTNESS OF BREATH SNOMED Code(s): 244254302 Plan: 1. Protonix 40 mg IV push twice a day 2. Diet as tolerated 3. Smoking cessation 4. No plans on endoscopic evaluation at this time as patient denies any epigastric pain, has no signs or symptoms of GI bleed, optimize medically 5. Patient may follow-up and consider outpatient endoscopy as needed, you may call us back if further needed Thank you for this consultation allowing us take part in the plan of care of your patient during her hospital stay Dr. Monroy I agree with the dictator's note, documented as a scribe by Mireya Calvin.
[2020-12-05] MEDS ORDERED: BENZOCAINE SPRAY 1 CAN MUCOUS MEM ONE (12:50)
[2020-12-05] MEDS ORDERED: fentaNYL (PF) 50 MCG/ML 2 ML AMP IV ONE (12:51)
[2020-12-05] MEDS ORDERED: MIDAZOLAM 2 MG/2 ML VIAL IV ONE (12:51)
--- NOTE | 2020-12-05 13:35 | P.PN ---
Subjective Progress Note Date: 12/05/20 Principal diagnosis: Shortness of breath. Acute systolic congestive heart failure This is a 60-year-old female history of breast cancer back in 2003, COPD, not O2 dependent, however the patient is known to have tobacco dependence syndrome, she is at least a [id number] smoker. Patient is primarily a patient of Dr. Pulido, she was admitted to the hospital yesterday with 3 days history of increased shortness of breath. Patient describes cough, cough is productive with clear phlegm, no fever, no chills, no hemoptysis, no chest pain. Chest x- ray on admission showed bilateral pleural effusions. And it also showed some bibasilar atelectasis. Echocardiogram showed severe LV dysfunction with ejection fraction of less than 20%. EKG showed nonspecific ST and T wave change s. Labs were basically unremarkable except for elevated troponin, negative PCR for COVID-19 infection, elevated BNP of 8800. Considering the patient has bilateral pleural effusions I was asked to see the patient on consultation. However based on the clinical history and based on the abnormal echocardiogram, the pleural effusions are clearly cardiac related, and no need for thoracentesis at this point, would only recommend aggressive medical therapy/diuretics. In the meantime the patient is being followed by cardiology for further evaluation of her cardiomyopathy and LV dysfunction. Patient is now on heparin, mostly for abnormal troponin and PTT is therapeutic. The patient is seen today 12/03/2020 in follow-up on the selective care unit. She is currently sitting up in bed. Awake and alert in no acute distress. Breathing a bit easier today compared to yesterday. Maintaining O2 saturations in the 90s on room air. She's afebrile. Hemodynamically stable. Chest x-ray continues showed bilateral pleural effusions left greater than right. Sodium 138. Potassium 3.3. Creatinine 0.95. Glucose 183. AST 68. ALT 47. Continue on Lasix 20 mg IV every 8 hours. Remains on Symbicort, DuoNeb inhalations. No accurate I & O however the patient states she is urinating quite frequently. Reevaluated today on 12/04/2020, patient is being treated for acute systolic congestive heart failure and COPD with bilateral pleural effusions, responding well to bronchodilators and diuretics. She is now on room air at 94% saturation. Dramatic improvement over the last 2 days, patient did not require thoracentesis, and based on her progress she will most likely not require thoracentesis. Patient is being followed by cardiology for her LV dysfunction, she may require further cardiac workup. Electrolytes are normal. Renal profile is normal. Follow-up chest x-ray will be done tomorrow for follow-up on her pleural effusions and congestive heart failure. I did not feel the patient w ould need or require thoracentesis Progress note dated 12/05/2020. 60-year-old female with history of breast cancer, COPD, and tobacco dependence syndrome. The patient was admitted with a diagnosis of congestive heart failure. The patient was seen by my partner 3 days ago in consultation. Laila thomas, she is doing relatively well. She's not on any supplemental oxygen. She feels like her breathing is much improved. She is hoping to be discharged soon. Room air saturation 96% with a respiratory rate of 16, heart rate of 89, and a blood pressure 93/52. Laboratory data from today includes a sodium 138, potassium 3.2, chlorides 95, CO2 37, anion gap 6, BUN 17, creatinine 0.75. Chest x-ray shows chronic emphysematous changes, with mild cardiomegaly, and small left greater than right pleural effusions. Cardiac catheterization showed normal coronary arteries, severe impairment of ventricular systolic function with a 3+ mitral regurgitation, and elevated left ventricular end-diastolic pressures. The patient is to have a transesophageal echocardiogram today. Objective - Vital Signs Vital signs: Vital Signs Temp 98 F 12/05/20 08:35 Pulse 89 12/05/20 13:01 Resp 16 12/05/20 13:01 BP 93/52 12/05/20 13:01 Pulse Ox 96 12/05/20 13:01 Intake & Output 12/04/20 12/05/20 12/05/20 18:59 06:59 18:59 Intake Total 360 100 Balance 360 100 Weight 54.9 kg Intake: IV 100 Oral 360 0 Other: Voiding Method Toilet # Voids 2 1 - Exam No acute distress, oriented 3. Currently not on any supplemental oxygen. HEENT examination is grossly unremarkable. Neck supple. Full range of motion. No adenopathy thyromegaly or neck vein distention. Cardiovascular examination reveals regular rhythm rate. S1-S2 normal. No S3 or S4. A 2/6 systolic murmurs noted. Lungs reveal mild bibasilar crackles. Breath sounds are diminished at the bases. No wheezes or rhonchi noted. Breath sounds equal bilaterally. Abdomen soft bowel sounds are heard. No masses or tenderness. Extremities are intact. No cyanosis or clubbing. Minimal edema noted. Skin is without rash or lesion. Neurologic examination is brief but nonfocal. - Labs CBC & Chem 7: 12/02/20 07:34 12/05/20 10:38 Labs: Abnormal Lab Results - Last 24 Hours (Table) 12/05/20 Range/Units 10:38 Potassium 3.2 L (3.5-5.1) mmol/L Chloride 95 L (98-107) mmol/L Carbon Dioxide 37 H (22-30) mmol/L Assessment and Plan Assessment: Shortness of breath, secondary to acute systolic congestive heart failure. Status post cardiac catheterization, with normal coronary arteries, severe left ventricular dysfunction and mitral regurgitation. Bilateral pleural effusions, relatively small. Severe cardiomyopathy. Possible underlying COPD from previous tobacco use. History of tobacco dependence syndrome. History of cannabis use. Prior history of breast cancer 2003, with bilateral mastectomies. Plan: Plan dated 12/05/2020. The plan is for this patient to have a transesophageal echocardiogram. The patient had a cardiac catheterization which showed normal coronary arteries. There was significant mitral regurgitation, and severely impaired left ventricular function. Additional recommendations and suggestions are forthcoming. We will follow along. Time with Patient: Less than 30
--- NOTE | 2020-12-05 13:40 | ECHOT ---
TRANSESOPHAGEAL ECHOCARDIOGRAM INDICATION: Evaluation of mitral valve. CLINICAL INFORMATION: After explaining the procedure to the patient, its risks and the complications, blood pressure, heart rate, O2 saturation was monitored. The throat was sprayed with Cetacaine. She received 2 mg intravenous Versed, 50 mcg intravenous fentanyl. The probe was introduced in the esophagus without difficulty. Images were obtained. Following that, the probe was removed. There was no immediate complication. FINDINGS: Left atrial size is dilated. Left ventricular size is dilated. Left ventricle systolic function severely impaired with ejection fraction 15-20 percent. The aortic valve, mitral valve and tricuspid valve are normal. No pericardial effusion was noted. Descending thoracic aorta appears to be normal. Contrast bubble study revealed no evidence of shunting across the interatrial septum. Doppler pulse wave and color Doppler obtained and revealed moderate mitral regurgitation with mild to moderate tricuspid regurgitation. Right ventricular systolic pressure was estimated at between 40 and 45 mmHg. There was no shunting by color Doppler study. CONCLUSION: 1. Dilated left atrium. 2. Dilated left ventricle, severe global hypokinesis. 3. Moderate central mitral regurgitation. 4. Mild tricuspid regurgitation and mild pulmonary hypertension. 5. No shunting across the interatrial septum. 6. Normal appearance of the descending thoracic aorta. MMODL / IJN: [id number] / MTDD
[2020-12-05] MEDS: SODIUM CHLORIDE 0.9% 1,000 ML IV SCH (19:42)
[2020-12-05] MEDS: ENOXAPARIN 40 MG/0.4 ML SYRINGE SQ SCH (19:42)
[2020-12-06 04:19] VITALS: RESP 18
[2020-12-06] MEDS: IPRATROPIUM-ALBUTEROL 3 ML NEB INHALATION SCH (07:44)
[2020-12-06] MEDS: SYMBICORT 160-4.5 MCG INHALER INHALATION SCH (07:44)
[2020-12-06] MEDS: ASPIRIN 81 MG PO SCH (07:51)
[2020-12-06] MEDS: METOPROLOL TARTRATE 25 MG TAB PO SCH (07:51)
[2020-12-06] MEDS: SPIRONOLACTONE 25 MG TAB PO SCH (07:52)
[2020-12-06] MEDS: FUROSEMIDE 40 MG TAB PO SCH (07:52)
[2020-12-06] MEDS: PANTOPRAZOLE 40 MG/10 ML VIAL IVP SCH (07:52)
[2020-12-06 08:39] LABS: African American GFR (CKD) >90 (>60 ml/min/1.73 sqM); Anion Gap 4 mmol/L; Blood Urea Nitrogen 13 mg/dL (7-17); Calcium 8.5 mg/dL (8.4-10.2); Carbon Dioxide 36 mmol/L (22-30); Chloride 98 mmol/L (98-107); Glucose 119 mg/dL (74-99); Non-African American GFR(CKD) >90 (>60 ml/min/1.73 sqM); Potassium 3.5 mmol/L (3.5-5.1); Sodium 138 mmol/L (137-145)
[2020-12-06 08:46] LABS: Anisocytosis Slight; Basophils % (A) 0 %; Eosinophils # (A) 0.2 k/uL (0-0.7); Eosinophils % (A) 2 %; HCT 38.7 % (34.0-46.0); HGB 12.1 gm/dL (11.4-16.0); Hypochromasia Moderate; Lymphocytes # (A) 1.7 k/uL (1.0-4.8); Lymphocytes % (A) 20 %; MCH 28.7 pg (25.0-35.0); MCHC 31.2 g/dL (31.0-37.0); MCV 91.9 fL (80.0-100.0); Mean Platelet Volume 10.3; Monocytes # (A) 0.4 k/uL (0-1.0); Monocytes % (A) 5 %; Neutrophils # (A) 6.2 k/uL (1.3-7.7); Neutrophils % (A) 72 %; Platelet Count 237 k/uL (150-450); RBC 4.21 m/uL (3.80-5.40); RDW 16.7 % (11.5-15.5); WBC 8.6 k/uL (3.8-10.6)
--- NOTE | 2020-12-06 11:05 | P.PN ---
Subjective Progress Note Date: 12/06/20 Principal diagnosis: Shortness of breath This is a 60-year-old female history of breast cancer back in 2003, COPD, not O2 dependent, however the patient is known to have tobacco dependence syndrome, she is at least a [id number] smoker. Patient is primarily a patient of Dr. Tejada, she was admitted to the hospital yesterday with 3 days history of increased shortness of breath. Patient describes cough, cough is productive with clear phlegm, no fever, no chills, no hemoptysis, no chest pain. Chest x- ray on admission showed bilateral pleural effusions. And it also showed some bibasilar atelectasis. Echocardiogram showed severe LV dysfunction with ejection fraction of less than 20%. EKG showed nonspecific ST and T wave changes. Labs were basically unremarkable except for elevated troponin, negative PCR for COVID-19 infection, elevated BNP of 8800. Considering the patient has bilateral pleural effusions I was asked to see the patient on consultation. However based on the clinical history and based on the abnormal echocardiogram, the pleural effusions are clearly cardiac related, and no need for thoracentesis at this point, would only recommend aggressive medical therapy/diuretics. In the meantime the patient is being followed by cardiology for further evaluation of her cardiomyopathy and LV dysfunction. Patient is now on heparin, mostly for abnormal troponin and PTT is therapeutic. The patient is seen today 12/03/2020 in follow-up on the selective care unit. She is currently sitting up in bed. Awake and alert in no acute distress. Breathing a bit easier today compared to yesterday. Maintaining O2 saturations in the 90s on room air. She's afebrile. Hemodynamically stable. Chest x-ray continues showed bilateral pleural effusions left greater than right. Sodium 138. Potassium 3.3. Creatinine 0.95. Glucose 183. AST 68. ALT 47. Continue on Lasix 20 mg IV every 8 hours. Remains on Symbicort, DuoNeb inhalations. No accurate I & O however the patient states she is urinating quite frequently. Reevaluated today on 12/04/2020, patient is being treated for acute systolic congestive heart failure and COPD with bilateral pleural effusions, responding well to bronchodilators and diuretics. She is now on room air at 94% saturation . Dramatic improvement over the last 2 days, patient did not require thoracentesis, and based on her progress she will most likely not require thoracentesis. Patient is being followed by cardiology for her LV dysfunction, she may require further cardiac workup. Electrolytes are normal. Renal profile is normal. Follow-up chest x-ray will be done tomorrow for follow-up on her pleural effusions and congestive heart failure. I did not feel the patient would need or require thoracentesis Progress note dated 12/05/2020. 60-year-old female with history of breast cancer, COPD, and tobacco dependence syndrome. The patient was admitted with a diagnosis of congestive heart failure. The patient was seen by my partner 3 days ago in consultation. Currently, she is doing relatively well. She's not on any supplemental oxygen. She feels like her breathing is much improved. She is hoping to be discharged soon. Room air saturation 96% with a respiratory rate of 16, heart rate of 89, and a blood pressure 93/52. Laboratory data from today includes a sodium 138, potassium 3.2, chlorides 95, CO2 37, anion gap 6, BUN 17, creatinine 0.75. Chest x-ray shows chronic emphysematous changes, with mild cardiomegaly, and small left greater than right pleural effusions. Cardiac catheterization showed normal coronary arteries, severe impairment of ventricular systolic function with a 3+ mitral regurgitation, and elevated left ventricular end-diastolic pressures. The patient is to have a transesophageal echocardiogram today. On 12/06/2020 patient seen in follow-up on selective care unit, she is ambulating about the room, she states she is being much easier, she is on room air the pulse ox in the 100%, she has been stable, no acute issues overnight, she did have a transesophageal echocardiogram this morning which showed dilated left atrium, dilated left ventricle, severe global hypokinesis, moderate central mitral regurgitation, mild tricuspid regurg and mild pulmonary hypertension, no shunting across the intra-atrial septum, and normal appearance of the descending thoracic aorta. She had a heart catheterization on Saturday which showed normal coronary arteries, and severe impairment of ventricular systolic function with a 3+ mitral regurgitation and elevated left ventricular end-diastolic pressure. Patient is frustrated that she is not able to leave this morning and demanding to be discharged right away this morning. From pulmonary perspective appears to be stable, no complaints of worsening dyspnea no cough or wheezing Objective - Vital Signs Vital signs: Vital Signs Temp 97.9 F 12/05/20 20:00 Pulse 73 12/06/20 04:00 Resp 18 12/06/20 04:00 BP 87/52 12/06/20 04:00 Pulse Ox 100 12/06/20 04:00 Intake & Output 12/05/20 12/06/20 12/06/20 18:59 06:59 18:59 Intake Total 100 Balance 100 Weight 55.4 kg Intake: IV 100 Oral 0 Other: Voiding Method Toilet # Voids 2 1 - Exam GENERAL EXAM: Alert, very pleasant 54-year-old white male, on room air with a pulse ox of 100%, comfortable in no apparent distress. HEAD: Normocephalic/atraumatic. EYES: Normal reaction of pupils, equal size. Conjunctiva pink, sclera white. NOSE: Clear with pink turbinates. THROAT: No erythema or exudates. NECK: No masses, no JVD, no thyroid enlargement, no adenopathy. CHEST: No chest wall deformity. Symmetrical expansion. LUNGS: Equal air entry with no crackles, wheeze, rhonchi or dullness. CVS: Regular rate and rhythm, normal S1 and S2, no gallops, no murmurs, no rubs ABDOMEN: Soft, nontender. No hepatosplenomegaly, normal bowel sounds, no guarding or rigidity. EXTREMITIES: No clubbing, no edema, no cyanosis, 2+ pulses and upper and lower extremities. MUSCULOSKELETAL: Muscle strength and tone normal. SPINE: No scoliosis or deformity SKIN: No rashes CENTRAL NERVOUS SYSTEM: Alert and oriented -3. No focal deficits, tone is normal in all 4 extremities. PSYCHIATRIC: Alert and oriented -3. Appropriate affect. Intact judgment and insight. - Labs CBC & Chem 7: 12/06/20 07:35 12/06/20 07:35 Labs: Abnormal Lab Results - Last 24 Hours (Table) 12/05/20 12/06/20 12/06/20 Range/Units 10:38 07:35 07:35 RDW 16.7 H (11.5-15.5) % Potassium 3.2 L (3.5-5.1) mmol/L Chloride 95 L (98-107) mmol/L Carbon Dioxide 37 H 36 H (22-30) mmol/L Glucose 119 H (74-99) mg/dL Assessment and Plan Plan: Assessment: #1. Shortness of breath secondary to acute exacerbation of systolic CHF #2. Nonischemic cardiomyopathy, severe left ventricular dysfunction and severe mitral regurgitation #3. Bilateral pleural effusions, relatively small #4. Possible underlying COPD from previous tobacco use #5. History of tobacco dependence syndrome #6. History of cannabis use #7. Prior history of breast cancer in 2003 with bilateral mastectomies #8. Poor medical compliance Plan: No worsening dyspnea Patient is on room air No complaints of chest pain Results of the heart cath and a transesophageal echocardiogram reviewed, which showed moderately severe mitral regurgitation From pulmonary perspective her COPD seems to be stable She is clear for discharge from pulmonary perspective Recommend the patient follows up with human resources benefits specialist Unfortunately patient has history of poor medical compliance She is threatening to leave AMA Advised to quit smoking I performed a history & physical examination of the patient and discussed their management with my nurse practitioner, Harriet Blake. I reviewed the nurse practitioner's note and agree with the documented findings and plan of care. Lung sounds are positive for diminished breath sounds. The findings and the impression was discussed with the patient. I attest to the documentation by the nurse practitioner. Time with Patient: Less than 30
[2020-12-06 13:11] VITALS: BP 94/54; PULSE 84; TEMP 98.2
--- NOTE | 2020-12-06 16:02 | P.PN ---
Subjective This is a 60-year-old female with a past medical history significant for breast cancer with chemotherapy and radiation in 2003, asthma, COPD, marijuana use, and nicotine dependence. Patient does not follow with a resource manager forester and denies any previous cardiac history. We have been asked to see the patient in consultation for abnormal troponins. Patient examined at the bedside. Patient states she presented to the hospital secondary to shortness of breath. She states this has been ongoing for the past 3 weeks. She states it has gotten progressively worse to the point where she felt like she was gasping for air yesterday. She reports coughing which is chronic for her. She denies any chest pain or pressure. Patient denies any chest pain 3 weeks ago when her shortness of breath started. She denies any fever or chills. 12/06 Patient denies any chest pain, SOB. VITO yesterday showed moderate central MR with EF 15-20%, left heart cath showed normal coronary arteries. PHYSICAL EXAM: VITAL SIGNS: Reviewed. GENERAL: Well-developed in no acute distress. HEENT: Head is normocephalic. Pupils are equal, round. Sclerae anicteric. Mucous membranes of the mouth are moist. Neck supple. No JVD or thyromegaly LUNGS: Respirations even and unlabored. Lungs with decreased air exchange and scattered expiratory wheezing. HEART: Regular rate and rhythm. S1 and S2 heard. ABDOMEN: Soft. Nondistended. Nontender. EXTREMITIES: Normal range of motion. No clubbing or cyanosis. Peripheral pulses intact. No lower extremity edema NEUROLOGIC: Awake and alert. Oriented x 3. ASSESSMENT: Shortness of breath 3 weeks Acute exacerbation of COPD Abnormal troponins, type 2 mechanism related to heart failure, hypoxia, normal left heart catheterization. Acute systolic heart failure History of breast cancer with chemotherapy and radiation, 2003 Nicotine dependence Cannabis use Mildly elevated LFTs PLAN: Optimize heart failure regimen as able. Appears stable for discharge from cardiac standpoint. Objective - Vital Signs Vital signs: Vital Signs Temp 98.2 F 12/06/20 08:00 Pulse 84 12/06/20 08:00 Resp 18 12/06/20 08:00 BP 94/54 12/06/20 08:00 Pulse Ox 97 12/06/20 08:00 Intake & Output 12/05/20 12/06/20 12/06/20 18:59 06:59 18:59 Intake Total 100 Balance 100 Weight 55.4 kg Intake: IV 100 Oral 0 Other: Voiding Method Toilet # Voids 2 1 - Labs CBC & Chem 7: 12/06/20 07:35 12/06/20 07:35 Labs: Abnormal Lab Results - Last 24 Hours (Table) 12/06/20 12/06/20 Range/Units 07:35 07:35 RDW 16.7 H (11.5-15.5) % Carbon Dioxide 36 H (22-30) mmol/L Glucose 119 H (74-99) mg/dL
--- NOTE | 2021-01-03 10:56 | P.PN ---
Subjective Progress Note Date: 12/05/20 Principal diagnosis: Acute CHF with systolic dysfunction This is a pleasant 60 years old female with no significant past medical history. She follows up with Dr. Alexander recently. She recently moved from [place] to [place]. Patient is heavy smoker smokes about 1 pack per day but no alcohol. She uses pot at times. Presents because of dyspnea over the last 3 weeks, her dyspnea got worse over the last couple days and she decided to come to emergency room. Her dyspnea is not associated with any chest pain or cough or phlegm. However she complains from epigastric pain for the last 2 weeks but mild about 1/10 , feels like tightness No nausea vomiting or diarrhea. No dysuria or change in urinary habits or frequency. He denies headache, weakness or numbness or blurred vision or slurred speech. However her chest pain is associated with numbness in her left upper extremity and fingers for the last 3 weeks. She is a slightly tachycardic and tender to 2, blood pressure is low normal with systolic BP above 100. Labs reviewed: CBC showed mild leukocytosis with 11.7 K, mild increased LFTs. Troponin is high at 0.04. Line chest x-ray showing bilateral pleural effusion with atelectasis. In the emergency room patient was started on heparin drip and aspirin. 12/02/2020 Patient is dyspneic today however her breathing still cannot past. she is on 2 L oxygen via nasal cannula and saturating 98% . CBC and BMP are unremarkable and creatinine normal. She still has decreased air entering on both sides of the lung. Her troponin were elevated again slightly today to 0.038. ProBNP is elevated 8800. Echocardiogram today showing ejection fraction less than 20% with wall hypokinesia, also severe MR, moderate TR and moderate pulmonary hypertension. Large pleural effusion. Continue with heparin drip, increase Lasix to 40 mg twice daily. Start Solu-Medro. Pulmonary consult in view large pleural effusion we will order ultrasound of the chest. Start Protonix 40 mg twice daily. 12/03/2020 Patient breathing improved, and no crepitation on her chest examination but they're still decreased breath sounds and basal areas due to her pleural effusion. Tachycardia improved and other vitals are normal. Creatinine and other labs are unremarkable. Mildly elevated liver enzymes. Yesterday night her blood pressure went down to 80s over 40s so we lowered the dose of Lasix 40 mg down to 20 mg 3 times a day. And 1 time dose of medial drain is provided. This morning her blood pressure is 105/56. She is on fluid restriction. She is on heparin drip and Aldactone and lisinopril as well as aspirin 81 mg. Echocardiogram showed ejection fraction 20% with hypokinesia. Cartilage team on the case. No need for thoracocentesis 12/04/2020 this is a pleasant 60 years old female presents withDyspnea, elevated troponin and low ejection fraction less than 20%. Also she has bilateral pleural effusion but lead miner does not think this to take thoracocentesis. Also echo shows severe MR, moderate TR and moderate pulmonary hypertension. Cardiology on the case for possible cardiac cath No dyspnea at rest, patient still has exertional dyspnea, epigastric pain and tenderness improving but not dissected. This to 3 days of twice a day Protonix. She has history of peptic ulcer disease at age 16. No overt chest pain. Patient does not want IV heparin infusion anymore, however she has been taking it for 48 hours/2 days, cardiology on the case and further recommendation regarding anticoagulation. if There is no further recommendation then it can be started on Lovenox tonight her IV Lasix was switched to 20 mg twice a day by chainman, will increase the dose to 40 mg twice daily.patient blood pressure is acceptable and creatinine within the reference range. patient also is on aspirin 81 mg. Gambling Supervisor added lisinopril and Aldactone. also we will consult GI team for Patient, persistent epigastric pain despite treatment with PPI. And the patient may need to dual antiplatelet therapy down the road 12/05/2020 Kenyon castro was admitted to hospital due to congestive heart failure. Breathing status is much improved now. Saturating well on room air. No complaints of chest pain. Otherwise blood pressure is 98/52. Elevated showed sodium 130, potassium 3.2 chloride 95 bicarb is 37 BUN 17 and creatinine 0.75 nightly chest x-ray showed chronic emphysematous metastatic changes, mild cardiomegaly and small left greater than right pleural effusions. Patient underwent cardiac catheterization showed normal coronaries, severe impairment of Levaquin to systolic function with 3+ mitral regurgitation and elevated left ventricle end-diastolic pressure. Patient is scheduled for VITO today. current medications reviewed. Objective - Vital Signs Vital signs: Vital Signs Temp 98 F 12/05/20 08:35 Pulse 72 12/05/20 10:20 Resp 18 12/05/20 10:20 BP 90/58 12/05/20 10:20 Pulse Ox 95 12/05/20 10:20 Intake & Output 12/04/20 12/05/20 12/05/20 18:59 06:59 18:59 Intake Total 360 50 Balance 360 50 Weight 54.9 kg Intake: IV 50 Oral 360 0 Other: Voiding Method Toilet # Voids 2 1 - Exam - Exam GENERAL: The patient is alert and oriented x3, not in any acute distress. Well developed, well nourished. HEENT: Pupils are round and equally reacting to light. EOMI. No scleral icterus. No conjunctival pallor. Normocephalic, atraumatic. No pharyngeal erythema. No thyromegaly. CARDIOVASCULAR: S1 and S2 present. No murmurs, rubs, or gallops. -PULMONARY: Chest is clear to auscultation, Decreased breath sounds on the basis. Expiratory wheezing ABDOMEN: Soft, nontender, nondistended, normoactive bowel sounds. No palpable organomegaly. MUSCULOSKELETAL: No joint swelling or deformity. EXTREMITIES: No cyanosis, clubbing, or pedal edema. NEUROLOGICAL: Gross neurological examination did not reveal any focal deficits. SKIN: No rashes. no petechiae. - Labs CBC & Chem 7: 12/06/20 07:35 12/06/20 07:35 Assessment and Plan Assessment: Shortness of breath Elevated troponin level, possible non-STEMI Acute CHF with systolic dysfunction Ischemic cardiomyopathy with ejection fraction less than 20% Severe MR, moderate TR, moderate pulmonary hypertension Bilateral pleural effusion, Epigastric pain and tenderness, rule out peptic ulcer disease Nicotine dependence Mild tonsillitis. COPD not in exacerbation Plan: This is a pleasant 60 years old female who presents with elevated troponin levels, possible non-STEMI. Patient to continue with heparin drip (patient refuses), aspirin 81 mg. Continue with Lasix 40 mg orallytwice daily. Continue with aspirin. Cardiology has seen the patient underwent cardiac catheterization showed normal kidneys. Patient does have significant mitral regurgitation and severely impaired left ventricle is systolic function. Status post VITO. Labs and medication were reviewed. Continue with symptomatic treatment. Resume home medication. Monitor lytes and vitals. DVT and GI prophylaxis. DVT prophylaxis: lovenox GI Prophylaxis: Ppi PT/OT: Pending Prognosis is guarded Time with Patient: Greater than 30
--- NOTE | 2021-01-03 11:00 | P.DS ---
Providers Date of admission: 12/01/20 17:10 Expected date of discharge: 12/06/20 Attending physician: Nathan Leiva MD Consults: 12/01/20 22:03 Consult Physician Urgent Consulting Provider: Julian Thao Consult Reason/Comments: acute coronary art disease Do you want consulting provider notified?: Yes 12/02/20 11:37 Consult Physician Urgent Consulting Provider: Harjinder Fitch Consult Reason/Comments: copd Do you want consulting provider notified?: Yes 12/04/20 12:05 Consult Physician Routine Consulting Provider: Sascah Monroy Consult Reason/Comments: epigastric pain an tenderness, history of PU Do you want consulting provider notified?: Yes Primary care physician: Cornell Alexander [facility] Course: Discharge diagnosis Shortness of breath Elevated troponin level, possible non-STEMI Acute CHF with systolic dysfunction Ischemic cardiomyopathy with ejection fraction less than 20% Severe MR, moderate TR, moderate pulmonary hypertension Bilateral pleural effusion, Epigastric pain and tenderness, rule out peptic ulcer disease Nicotine dependence Mild tonsillitis. COPD not in exacerbation Hospital course This is a pleasant 60 years old female with no significant past medical history. She follows up with Dr. Alexander recently. She recently moved from [place] to [place]. Patient is heavy smoker smokes about 1 pack per day but no alcohol. She uses pot at times. Presents because of dyspnea over the last 3 weeks, her dyspnea got worse over the last couple days and she decided to come to emergency room. Her dyspnea is not associated with any chest pain or cough or phlegm. However she complains from epigastric pain for the last 2 weeks but mild about 1/10 , feels like tightness No nausea vomiting or diarrhea. No dysuria or change in urinary habits or frequency. He denies headache, weakness or numbness or blurred vision or slurred speech. However her chest pain is associated with numbness in her left upper extremity and fingers for the last 3 weeks. She is a slightly tachycardic and tender to 2, blood pressure is low normal with systolic BP above 100. Labs reviewed: CBC showed mild leukocytosis with 11.7 K, mild increased LFTs. Troponin is high at 0.04. Line chest x-ray showing bilateral pleural effusion with atelectasis. In the emergency room patient was started on heparin drip and aspirin. 12/02/2020 Patient is dyspneic today however her breathing still cannot past. she is on 2 L oxygen via nasal cannula and saturating 98% . CBC and BMP are unremarkable and creatinine normal. She still has decreased air entering on both sides of the lung. Her troponin were elevated again slightly today to 0.038. ProBNP is elevated 8800. Echocardiogram today showing ejection fraction less than 20% with wall hypokinesia, also severe MR, moderate TR and moderate pulmonary hypertension. Large pleural effusion. Continue with heparin drip, increase Lasix to 40 mg twice daily. Start Solu-Medro. Pulmonary consult in view large pleural effusion we will order ultrasound of the chest. Start Protonix 40 mg twice daily. 12/03/2020 Patient breathing improved, and no crepitation on her chest examination but they're still decreased breath sounds and basal areas due to her pleural effusion. Tachycardia improved and other vitals are normal. Creatinine and other labs are unremarkable. Mildly elevated liver enzymes. Yesterday night her blood pressure went down to 80s over 40s so we lowered the dose of Lasix 40 mg down to 20 mg 3 times a day. And 1 time dose of medial drain is provided. This morning her blood pressure is 105/56. She is on fluid restriction. She is on heparin drip and Aldactone and lisinopril as well as aspirin 81 mg. Echocardiogram showed ejection fraction 20% with hypokinesia. Cartilage team on the case. No need for thoracocentesis 12/04/2020 this is a pleasant 60 years old female presents withDyspnea, elevated troponin and low ejection fraction less than 20%. Also she has bilateral pleural effusion but mine exploration engineer does not think this to take thoracocentesis. Also echo shows severe MR, moderate TR and moderate pulmonary hypertension. Cardiology on the case for possible cardiac cath No dyspnea at rest, patient still has exertional dyspnea, epigastric pain and tenderness improving but not dissected. This to 3 days of twice a day Protonix. She has history of peptic ulcer disease at age 16. No overt chest pain. Patient does not want IV heparin infusion anymore, however she has been taking it for 48 hours/2 days, cardiology on the case and further recommendation regarding anticoagulation. if There is no further recommendation then it can be started on Lovenox tonight her IV Lasix was switched to 20 mg twice a day by meat stock clerk, will increase the dose to 40 mg twice daily.patient blood pressure is acceptable and creatinine within the reference range. patient also is on aspirin 81 mg. Cider Press Operator added lisinopril and Aldactone. also we will consult GI team for Patient, persistent epigastric pain despite treatment with PPI. And the patient may need to dual antiplatelet therapy down the road 12/05/2020 Kenyon castro was admitted to hospital due to congestive heart failure. Breathing status is much improved now. Saturating well on room air. No complaints of chest pain. Otherwise blood pressure is 98/52. Elevated showed sodium 130, potassium 3.2 chloride 95 bicarb is 37 BUN 17 and creatinine 0.75 nightly chest x-ray showed chronic emphysematous metastatic changes, mild cardiomegaly and small left greater than right pleural effusions. Patient underwent cardiac catheterization showed normal coronaries, severe impairment of Levaquin to systolic function with 3+ mitral regurgitation and elevated left ventricle end-diastolic pressure. Patient is scheduled for VITO today. Neck 12/16/2020 Patient is currently lying in the bed. Exertional dyspnea and no complaints of chest pain. VITO showed moderate central MR with ejection fraction 15-20%. Left heart catheterization showed normal coronaries otherwise. Patient is being continued on diuresis. Patient is demanding to be discharged. Patient left AMA. Patient Condition at Discharge: Fair Plan - Discharge Summary Discharge Rx Participant: No New Discharge Prescriptions: No Action Fluticasone Propionate [Flovent Diskus] 2 puff INHALATION RT-BID Discharge Medication List Fluticasone Propionate [Flovent Diskus] 2 puff INHALATION RT-BID 12/01/20 [History] Follow up Appointment(s)/Referral(s): Harjinder Fitch MD [STAFF PHYSICIAN] - 1 Week Cornell Alexander DO [Primary Care Provider] - 1-2 days Discharge Disposition: Left Against Medical Advice
== END 2020-12-06 09:14 | disposition left against medical advice (07) | DRG 280 ==
LOC: EC 12:09 → 4SSUR 17:10 → 3SCARD 21:57
PROVIDERS: ADMIT Internal Medicine; ATTEND Internal Medicine
PROC: B2111ZZ Fluoroscopy of Multiple Coronary Arteries using Low Osmolar Contrast (ICD-10-PCS; 2020-12-05)
PROC: B2151ZZ Fluoroscopy of Left Heart using Low Osmolar Contrast (ICD-10-PCS; 2020-12-05)
PROC: B245ZZ4 Ultrasonography of Left Heart, Transesophageal (ICD-10-PCS; 2020-12-05)
PROC: 4A023N7 Measurement of Cardiac Sampling and Pressure, Left Heart, Percutaneous Approach (ICD-10-PCS; principal; 2020-12-05 07:30)
DX: I21.4 Non-ST elevation (NSTEMI) myocardial infarction (principal); I50.23 Acute on chronic systolic (congestive) heart failure; J44.1 Chronic obstructive pulmonary disease with (acute) exacerbation; J45.901 Unspecified asthma with (acute) exacerbation; I42.8 Other cardiomyopathies; J98.11 Atelectasis; Z85.118 Personal history of other malignant neoplasm of bronchus and lung; Z85.3 Personal history of malignant neoplasm of breast; F17.210 Nicotine dependence, cigarettes, uncomplicated; Z20.822 Contact with and (suspected) exposure to COVID-19; Z92.21 Personal history of antineoplastic chemotherapy; Z92.3 Personal history of irradiation; Z82.49 Family history of ischemic heart disease and other diseases of the circulatory system; Z82.3 Family history of stroke; K21.9 Gastro-esophageal reflux disease without esophagitis; I08.1 Rheumatic disorders of both mitral and tricuspid valves; I27.20 Pulmonary hypertension, unspecified; D72.829 Elevated white blood cell count, unspecified; Z79.82 Long term (current) use of aspirin; R09.02 Hypoxemia; Z90.13 Acquired absence of bilateral breasts and nipples; Z87.11 Personal history of peptic ulcer disease; Z88.5 Allergy status to narcotic agent; Z71.6 Tobacco abuse counseling
CPT/HCPCS: 36415; 71045; 71046; 76604; 80048; 80053; 80061; 82550; 83605; 83735; 83880; 84145; 84484; 85025; 85610; 85730; 87635; 93005; 93306; 93312; 93320; 93325; 93458; 94640; 96361; 96374; 99285